=== PATIENT | female | born 1950 | race Caucasian/White ===

== ENCOUNTER → 2016-05-13 | Outpatient (CLI) | payer MEDICARE, OTHER ==
[~2016-05-13] MED LIST: ASPI81TA85 PO; AZEL0.055; BISO10TA3 PO; CALC0.02 EX; DESO0.0557 EX; DRIS50002 PO; GLIM2TA PO; GLIM4TAB PO; IRBE150T12 PO; LEVO175T2 PO; MELO15TA4 PO; METF500T PO; OMEG100011 PO; RANI1TAB6 PO; SIMV10TA2 PO; TYLE500T78 PO; VITA100037 PO; ZIAC2.5T PO
--- NOTE | 2016-05-13 12:37 | REP ---
Chest two views HISTORY: Diabetes Comparison: 01/08/2016 The lungs are clear. The heart is normal in size. The pulmonary vasculature is normal in appearance. The bony structure is intact. IMPRESSION: No acute disease. Signed by Grey Langley MD 05/13/2016 12:28 P
[2016-05-13 12:47] LABS: ALBUMIN 3.5 GM/DL (3.2-5.2); ALBUMIN/GLOBULIN RATIO 0.81 (1.00-1.93); ALKALINE PHOSPHATASE 98 U/L (45-117); ALT/SGPT 38 U/L (12-78); ANION GAP 11 MEQ/L (8-16); AST/SGOT 22 U/L (15-37); BILIRUBIN,TOTAL 0.2 MG/DL (0.2-1.0); BLOOD UREA NITROGEN 20 MG/DL (7-18); CALCIUM LEVEL 9.5 MG/DL (8.8-10.2); CARBON DIOXIDE LEVEL 24 MEQ/L (21-32); CHLORIDE LEVEL 107 MEQ/L (98-107); CREATININE FOR GFR 0.77 MG/DL (0.55-1.02); GLOMERULAR FILTRATION RATE > 60.0 (>45); GLUCOSE, FASTING 180 MG/DL (80-110); POTASSIUM SERUM 4.8 MEQ/L (3.5-5.1); SODIUM LEVEL 142 MEQ/L (136-145); TOTAL PROTEIN 7.8 GM/DL (6.4-8.2)
[2016-05-13 12:55] LABS: INR 0.89
[2016-05-13 12:57] LABS: MEAN CORPUSCULAR HEMOGLOBIN 29.9 pg (27.0-33.0); MEAN CORPUSCULAR HGB CONC 32.6 g/dl (32.0-36.5); MEAN CORPUSCULAR VOLUME 91.7 fl (80.0-96.0); RED CELL DISTRIBUTION WIDTH 13.2 % (11.5-14.5); WHITE BLOOD COUNT 8.2 K/mm3 (4.0-10.0)
--- NOTE | 2016-05-13 22:34 | ECGEPIP ---
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
== END ==
LOC: M ADMPAT 10:35
PROVIDERS: ATTEND Orthopaedic Surgery
DX: Z01.818 Encounter for other preprocedural examination (principal); E11.9 Type 2 diabetes mellitus without complications; I10 Essential (primary) hypertension; E78.5 Hyperlipidemia, unspecified; E07.9 Disorder of thyroid, unspecified; Z79.899 Other long term (current) drug therapy

== ENCOUNTER 2016-05-27 07:30 | Inpatient (IN) | payer MEDICARE, OTHER ==
[2016-05-13 10:54] VITALS: BP 134/81
--- NOTE | 2016-05-22 13:23 | HPE ---
DATE OF ADMISSION: 05/27/2016 HISTORY OF PRESENT ILLNESS: This is a pleasant female with continuing symptomatic bilateral knee osteoarthritis. Dr. Nicole has diagnosed marked arthritis at both knees and the patient decided to consented for left total knee arthroplasty. The patient states she was given thee option to proceed with either knee arthroplasty, and that it would ultimately be decided upon the day of surgery. Today she is leaning towards having the right knee done. X-rays are consistent with bilateral knee degenerative joint disease (DJD). The patient was cleared by Dr. Jensen and actually had a recent history and physical completed by Brittny Shannon on 01/22/2016, but there was further workup necessary per anesthesia so her surgery was cancelled. Since that time, she was reoptimized by Dr. Jensen. I am still awaiting that documentation. ALLERGIES: - LEVAQUIN - SULFA DRUGS CURRENT MEDICATIONS: - Mobic 15 mg - irbesartan 150 mg - Vitamin D 1.25 mg - levothyroxine sodium 175 mcg - bisoprolol fumarate/hydrochlorothiazide 2.5/6.25 mg - metformin HCl 500 mg - Merced-3 1 mg - simvastatin 10 mg - Azelastine HCl nasal 0.1% - ibuprofen 600 mg - calcipotriene 0.005% - Zantac EFFERdose 25 mg - Tylenol Extra Strength 500 mg - glimepiride 4 mg - desonide 0.05% - aspirin 81 mg MEDICAL PROBLEM LIST: 1. Bilateral knee osteoarthritis. 2. Hypertension. 3. Diabetes mellitus. 4. Obesity. 5. Hypercholesteremia. 6. Thyroid disease. PAST SURGICAL HISTORY: 1. Partial hysterectomy. 2. Heel spur. FAMILY HISTORY: Positive for arthritis, hypertension, heart disease, diabetes and thyroid disease. SOCIAL HISTORY: She is a former smoker, quit in 2006. Denies ethanol intake or illicit drugs. REVIEW OF SYSTEMS: Denies chest pain, shortness of breath, dyspnea on exertion, fever, chills, malaise, upper respiratory or urinary tract symptoms. PHYSICAL EXAMINATION: Height 67 inches, weight 305, temperature 98.2, blood pressure (BP) 150/84, pulse 64, respirations 11. She is a pleasant, morbidly obese, white female in no acute distress, alert, and oriented times three. Mood and affect are appropriate. Bilateral lower extremities: Skin temperature, color, sensory and motor within normal limits. These are benign noninfectious looking limbs. Abdomen soft, nontender. Chest: Rises symmetrically. Lungs: Negative SOB. Neck: Supple. Negative jugular venous distention (JVD) or bruits. Normocephalic. LAB STUDIES: Were reviewed which showed high glucose fasting at 180. BUN 20. Albumin-globulin ratio 0.81. Leukocyte esterase urine auto trace. WBC urine auto 5, bacteria urine auto 1+. PTT 12.2. ESR 55. Nasal, sinus, and urine cultures showed no growth. EKG sinus rhythm with first-degree AV block with occasional ventricular premature complexes as read by Dr. Kinney. Chest x-ray showed no acute disease, date of service, 05/13/2016, read by Dr. Langley. IMPRESSION: 1. Bilateral symptomatic knee degenerative joint disease. 2. Patient currently consented for a left total knee arthroplasty, but states she will decide the day of surgery with Dr. Nicole and is leaning towards having the right done today. 3. Medical optimization per Dr. Jensen, which I am still awaiting documentation. 4. On-call to operating room (OR) 2 grams IV Kefzol in OR. 5. Sequential compression device (SCD) and thromboembolic deterrent stockings (TEDS) in OR. MTDD
[~2016-05-27] VITALS: Ht 170.2 cm; Wt 138.3 kg
[~2016-05-27 07:30] MED LIST changes: +BUPIVACAINE HCL 0.5% 10 ML VIAL As Ordered ONE; +EPINEPHrine INJ 1 MG/ML 1ML VIAL/AMP As Ordered ONE; +ROPIvacaine 0.5% 30 ML INJECTION (J2795) As Ordered ONE; +TRANEXAMIC ACID 100 MG/ML 10ML VIAL As Ordered ONE; +ceFAZolin 1GM INJ (J0690) As Ordered ONE
[2016-05-27] MEDS ORDERED: ACETAMINOPHEN 500 MG TAB PO ONE (08:15)
[2016-05-27] MEDS ORDERED: LR 1,000 ML IV SCH ×2 (08:15→13:45)
[2016-05-27] MEDS ORDERED: COUM1TAB17 PO (08:21)
[2016-05-27] MEDS ORDERED: MIDAZOLAM INJ 2 MG/2 ML VIAL (J2250) As Ordered ONE ×2 (08:24→09:51)
[2016-05-27] MEDS ORDERED: fentaNYL 100 MCG/2 ML INJECTION (J3010) As Ordered ONE ×3 (08:41→10:40)
[2016-05-27] MEDS ORDERED: PROPOFOL 200 MG/20 ML VIAL As Ordered ONE ×2 (08:47→11:53)
[2016-05-27] MEDS ORDERED: LIDOCAINE 2% INJ 100 MG/5 ML SDV (FOR ANES.) As Ordered ONE (08:47)
[2016-05-27] MEDS ORDERED: IRBESARTAN 150 MG TAB PO SCH (09:00)
[2016-05-27] MEDS ORDERED: fentaNYL 100 MCG/2 ML INJECTION (J3010) IV ONE (10:45)
[2016-05-27] MEDS ORDERED: MIDAZOLAM INJ 2 MG/2 ML VIAL (J2250) IV ONE (10:45)
[2016-05-27] MEDS ORDERED: ONDANSETRON 4MG/2ML VIAL (J2405) As Ordered ONE (12:28)
[2016-05-27] MEDS ORDERED: ROPIvacaine 0.5% 30 ML INJECTION (J2795) ONE (12:54)
[2016-05-27] MEDS ORDERED: dexameTHASONE 10 MG/1 ML VIAL PRES.FREE (J1100) ONE (12:54)
[2016-05-27] MEDS ORDERED: EPINEPHrine INJ 1 MG/ML 1ML VIAL/AMP ONE (12:54)
[2016-05-27] MEDS ORDERED: MORPHINE PCA 1MG/ML 100ML CADD As Ordered ONE (13:42)
[2016-05-27] MEDS ORDERED: HYDROmorphone HCL 1 MG/ML SYRINGE (J1170) IV PRN (13:45)
[2016-05-27] MEDS ORDERED: ONDANSETRON 4MG/2ML VIAL (J2405) IV PRN ×2 (13:45→14:15)
[2016-05-27] MEDS ORDERED: PERCOCET 5MG/325MG TAB PO PRN (13:45)
[2016-05-27] MEDS ORDERED: fentaNYL 100 MCG/2 ML INJECTION (J3010) IV PRN (13:45)
[2016-05-27] MEDS ORDERED: FLEET ENEMA PR PRN (14:00)
[2016-05-27] MEDS ORDERED: ACETAMINOPHEN TAB 650MG DOSE (2X325MG) PO PRN (14:00)
[2016-05-27] MEDS ORDERED: NALOXONE INJ 0.4 MG/1 ML VIAL (J2310) IV PRN (14:15)
[2016-05-27] MEDS ORDERED: EPIDURAL/PCA KEYS XX PRN (14:15)
[2016-05-27] MEDS ORDERED: MORPHINE PCA 1MG/ML 100ML CADD IV PRN (14:15)
[2016-05-27] MEDS ORDERED: diphenhydrAMINE INJ 50MG/ML VIAL (J1200) IV PRN (14:15)
[2016-05-27] MEDS ORDERED: NALBUPHINE HCL 10 MG/ML AMP (J2300) IV PRN (14:15)
[2016-05-27] MEDS ORDERED: PATIENT IS CURRENTLY ON AN ON-Q PAIN BUSTER PAIN RELIEF SYSTEM XX SCH (14:15)
[2016-05-27] MEDS ORDERED: PHENYLephrine HCL 500 MCG/5 ML (100MCG/ML) SYRINGE (J2370) As Ordered ONE (14:26)
[2016-05-27] MEDS ORDERED: ePHEDrine SULFATE 25 MG/5 ML(5MG/ML) SYRINGE As Ordered ONE (14:26)
[2016-05-27 15:03] VITALS: BP 136/60
[2016-05-27 15:30] VITALS: BP 120/59
[2016-05-27] MEDS: LR 1,000 ML IV SCH (16:29)
[2016-05-27 16:30] VITALS: BP 147/63
[2016-05-27] MEDS ORDERED: WARFARIN SOD 5 MG TAB PO ONE (17:00)
[2016-05-27 17:30] VITALS: BP 141/65
[2016-05-27] MEDS: IRBESARTAN 150 MG TAB PO SCH (17:40)
--- NOTE | 2016-05-27 17:40 | CR ---
DATE OF CONSULTATION: 05/27/2016 CONSULTATION REPORT FOR: Dr. Isidro Nicole. PRIMARY CARE PROVIDER: Dr. Martin REASON FOR CONSULTATION: Medical management. HISTORY OF THE PRESENT ILLNESS: This is a 66-year-old female patient with underlying medical history of morbid obesity, osteoarthritis bilateral knee, hypertension, type 2 diabetes, dyslipidemia, hypothyroidism, admitted under orthopedic service status post right total knee replacement surgery by Dr. Isidro Nicole. The patient had a stress test, which was negative, by patient's outpatient provider prior to the surgery. Status post surgery, the patient currently denies any chest pain, pressure, discomfort. Denies any shortness of breath. Denies a history of obstructive sleep apnea. The patient does not drink alcohol or use illicit drugs. She is not on oxygen at home. Reported pain was in tolerable limits. ALLERGIES: To ENVIRONMENTAL ALLERGENS, LEVAQUIN. PAST MEDICAL HISTORY: Bilateral knee osteoarthritis. Hypertension. Type 2 diabetes. Obesity. Dyslipidemia. Hypothyroidism. PAST SURGICAL HISTORY: Partial hysterectomy. Heel spur surgery. FAMILY HISTORY: coronary artery disease, diabetes and hypothyroidism. SOCIAL HISTORY: The patient is a former smoker, quit in 1976. Denies alcohol use or illicit drug use. REVIEW OF SYSTEMS: 11-point review of systems is negative, except for those mentioned in the history of the present illness. HOME MEDICATIONS: - acetaminophen 500 mg by mouth as needed - aspirin 81 mg by mouth daily - azelastine nasal 0.15% - desonide 0.05% cream as needed - glimepiride 4 mg by mouth daily and 2 mg by mouth nightly - irbesartan 150 mg by mouth daily - Synthroid 175 mcg by mouth daily - meloxicam 15 mg by mouth daily - metformin 500 mg by mouth twice a day - Collins 3 fatty acid one tablet by mouth daily - ranitidine one capsule by mouth twice a day - Zocor 10 mg by mouth daily - vitamin D 50,000 units by mouth once a week PHYSICAL EXAMINATION: VITAL SIGNS: Temperature 98, pulse 64, respirations 16, blood pressure 120/59, pulse oximetry 96% on 2 liters nasal cannula. GENERAL: Patient alert and oriented times three, in no acute distress, obese. HEENT: Normocephalic, atraumatic. PULMONARY: Bilaterally clear to auscultation. CARDIAC: Regular rate and rhythm. Normal S1, S2. ABDOMEN: Soft, nontender. EXTREMITIES: Able to move bilateral lower extremities. Dorsalis pedis (DP), posterior tibial (PT) pulses 2+. No edema bilateral lower extremities. ASSESSMENT AND PLAN: This is a 66-year-old female patient with underlying medical history of hypertension, morbid obesity, type 2 diabetes, dyslipidemia, hypotension, hypertension, osteoarthritis, admitted under orthopedic service, status post right total knee replacement surgery. Medicine consulted for medical management. Problems: 1. Osteoarthritis of bilateral knees. Status post right total knee replacement by Dr. Isidro Nicole. Pain regimen, perioperative management, physical therapy and deep vein thrombosis (DVT) prophylaxis as per orthopedics. Patient on Coumadin for deep vein thrombosis (DVT) prophylaxis. Bowel regimen has been added. 2. Seasonal allergies. Claritin has been started. Patient's home medication is not on formulary. 3. Type 2 diabetes. Insulin as per protocol. Holding oral medications. Follow fingersticks. 4. Hypertension. Continue home medication. 5. Dyslipidemia. Continue home medication. 6. Hypothyroidism. Continue levothyroxine. 7. Dyslipidemia. Continue statin. 8. Obesity, complicating care. 9. Deep vein thrombosis (DVT) prophylaxis. The patient is on Coumadin. DISPOSITION: As per primary team. MTDD
[2016-05-27] MEDS: HumuLIN R (REGULAR) INSULIN (NovoLIN R) **100U/ML** PER UNIT SC SCH ×2 (18:00→21:00)
[2016-05-27 18:30] VITALS: BP 116/55
[2016-05-27] MEDS: OMEGA-3 1050MG CAPSULE PO SCH (21:13)
[2016-05-27] MEDS: SENOKOT S TAB PO SCH (21:14)
[2016-05-27] MEDS: LORATADINE 10 MG TAB PO SCH (21:14)
[2016-05-27] MEDS: SIMVASTATIN 10 MG TAB PO SCH (21:14)
[2016-05-27 22:00] VITALS: BP 139/66
[2016-05-28 02:00] VITALS: BP 148/62
[2016-05-28] MEDS: LR 1,000 ML IV SCH (02:30)
--- NOTE | 2016-05-28 05:54 | RO ---
DATE OF PROCEDURE: 05/27/2016 PREOPERATIVE DIAGNOSIS: Right knee degenerative arthritis. POSTOPERATIVE DIAGNOSIS: Right knee degenerative arthritis. PROCEDURE: Right total knee arthroplasty using a size 4 narrow femoral component cruciate retaining with a size 3 tibial tray and a 10 mm rotating platform polyethylene insert with a 35 mm polyethylene button. All components were cemented. The prosthesis was made by [employer]. It was a PFC knee. SURGEON: Isidro Garcia MD ENVELOPE FOLDING MACHINE ADJUSTER: JOSE CRUZ Gaytan ANESTHESIA: Spinal with postoperative PainBuster catheter. COMPLICATIONS: None. ESTIMATED BLOOD LOSS: 20 mL. TOURNIQUET TIME: 70 minutes. DESCRIPTION OF PROCEDURE: Antibiotics were given intravenously preoperatively and a successful spinal anesthetic was induced. [place] catheter placed. Tourniquet placed right upper thigh and not inflated. Right lower extremity was prepped and draped in the usual sterile fashion and then the leg was elevated. Then, after appropriate time-out, the tourniquet was inflated and then we made an anterior incision for a medial parapatellar approach to the knee. Bovie cautery was used to coagulate crossing vessels. We then performed a medial patella arthrotomy. Subperiosteal dissection and medial release was performed around the posterior proximal medial portion of the tibia. Initially, we could not van the patella but we flexed the knee and translated the patella laterally. A drill was placed down the center of the femoral canal, followed by the intramedullary shashi with the distal femoral cutting jigs set at 5 degree valgus cut, a 10 mm resection level for a right knee. It was pinned into position. Distal femoral cut performed. AP sizing jig measured for a size 4, which was then positioned and then the 3 degree external rotation jig was applied and the pins applied, followed by the 4-in-1 block for a size 4. Then, we performed the anterior, posterior, chamfer cuts and then exposed the proximal tibia. At this point, we were able to van the patella by doing some minor superficial patella releases to allow the patella to van. The proximal tibia was then exposed and extramedullary alignment jig used to make sure we were parallel to the mechanical access and we referenced off the medial tibial condyle at 4 mm resection level. The proximal tibial osteotomy jig was then positioned and pinned into position after making sure it was appropriately aligned. Secondary check with the extramedullary shashi confirmed that we were parallel. Proximal tibial osteotomy was then performed. The lamina supervisor paint roller covers was then placed medially and we performed a completion lateral meniscectomy with debridement of the posterior lateral osteophytes. We then placed the lamina supervisor paint roller covers laterally and performed a completion medial meniscectomy and debridement of the posterior medial osteophytes. The AP sizing jig at 10 mm thickness fit beautifully in terms of its stability and range of motion in both flexion and in extension with good rectangular equal flexion and extension space. Thus, this was the appropriate size we felt. We then exposed the proximal tibia once again, sized for a #3 tibial tray, which was pinned into position, followed by the reamer and broach, then the trial polyethylene and then the trial femoral component. We brought the knee into the extension, everted the patella, performed the patellar osteotomy, sized for a 35 button. Lug holes were drilled. Patellofemoral tracking was anatomic. We drilled the lug holes for the femur, then removed all the trial components and we copiously pulsatile lavaged, irrigated out the joint and then prepared the bony surfaces for cementing as my podiatry assistant, JOSE CRUZ Gaytan, mixed the cement on the back table. He was also critical to the success of the procedure by helping to manipulate the knee, hold appropriate soft tissue retraction, helped to mix the cement, helped to close the wound, helped position the patient and performed many other tasks throughout the operation. Once all the bony surfaces were thoroughly dried, we cemented the tibial tray, removed excess cement, placed the polyethylene, then cemented the femoral component, removed excess cement, brought the knee into extension, everted the patella and cemented the patellar component, removed excess cement and held this position until the cement had hardened. We copiously pulsatile lavage, irrigated out the knee joint once again as the cement was hardening; and then we placed the tranexamic acid in the knee and then began closing the apex with the arthrotomy with two interrupted #1 PDS sutures. We then closed the medial parapatellar area with a single #1 PDS suture. We then used a running double armed Stratafix to close the capsule. The tourniquet was then released. We then irrigated again the superficial tissues, closed them with interrupted #2-0 PDS suture. The skin was closed with sammy, covered by Adaptic, dry sterile bulky dressing after we placed the PainBuster catheter, which was placed after the arthrotomy and had already been closed. The tourniquet was released after we closed the capsule. The patient was then transferred to the recovery room in stable condition. There were no intraoperative complications.
[2016-05-28 06:00] VITALS: BP 123/60
[2016-05-28] MEDS ORDERED: ONDANSETRON 4 MG TAB (S0181) PO PRN (06:30)
[2016-05-28] MEDS ORDERED: PERCOCET 5MG/325MG TAB PO ONE (06:30)
[2016-05-28 06:58] LABS: MEAN CORPUSCULAR HEMOGLOBIN 29.4 pg (27.0-33.0); MEAN CORPUSCULAR HGB CONC 31.7 g/dl (32.0-36.5); MEAN CORPUSCULAR VOLUME 92.6 fl (80.0-96.0); RED CELL DISTRIBUTION WIDTH 13.2 % (11.5-14.5); WHITE BLOOD COUNT 11.5 K/mm3 (4.0-10.0)
[2016-05-28] MEDS: LEVOTHYROXINE 0.075 MG TAB (75 MCG) PO SCH (07:01)
[2016-05-28] MEDS: LEVOTHYROXINE 0.1 MG TAB (100 MCG) PO SCH (07:01)
[2016-05-28 07:06] LABS: ANION GAP 9 MEQ/L (8-16); BLOOD UREA NITROGEN 12 MG/DL (7-18); CALCIUM LEVEL 8.6 MG/DL (8.8-10.2); CARBON DIOXIDE LEVEL 29 MEQ/L (21-32); CHLORIDE LEVEL 101 MEQ/L (98-107); GLOMERULAR FILTRATION RATE > 60.0 (>45); GLUCOSE, FASTING 239 MG/DL (80-110); MAGNESIUM LEVEL 1.8 MG/DL (1.8-2.4); POTASSIUM SERUM 4.1 MEQ/L (3.5-5.1); SODIUM LEVEL 139 MEQ/L (136-145)
[2016-05-28 07:08] LABS: INR 1.11
[2016-05-28] MEDS: HumuLIN R (REGULAR) INSULIN (NovoLIN R) **100U/ML** PER UNIT SC SCH ×4 (09:14→20:36)
[2016-05-28] MEDS: HYDROCHLOROthiazide 6.25MG PER 1/4TAB PO SCH (09:14)
[2016-05-28] MEDS: MOM 30ML SUSPENSION UDC PO SCH (09:14)
[2016-05-28] MEDS: MIRALAX *UNIT DOSE* 17GM PACKET PO SCH (09:14)
[2016-05-28] MEDS: IRBESARTAN 150 MG TAB PO SCH (09:15)
[2016-05-28] MEDS: OMEGA-3 1050MG CAPSULE PO SCH ×2 (09:15→20:27)
[2016-05-28] MEDS: BISOPROLOL FUMARATE 10 MG TAB PO SCH (09:15)
[2016-05-28] MEDS: SENOKOT S TAB PO SCH ×2 (09:16→20:27)
[2016-05-28] MEDS: PERCOCET 5MG/325MG TAB PO PRN ×4 (09:16→21:57)
--- NOTE | 2016-05-28 09:47 | REP ---
REASON: Postop. COMPARISON: 12/06/2014, a preoperative exam. AP and lateral views were obtained. There has been a total knee prosthetic device placed, the femoral and tibial components of which are well seated and well approximated. There is expected postoperative soft tissue swelling. There is an anterior skin staple line in place. There is no evidence of an acute fracture or dislocation. IMPRESSION: Expected Postop changes as described above. Signed by Gerald Hawkins DO 05/28/2016 02:39 P
[2016-05-28 14:00] VITALS: BP 133/61
[2016-05-28] MEDS ORDERED: WARFARIN SOD 5 MG TAB PO ONE (17:00)
[2016-05-28 18:00] VITALS: BP 118/54
--- NOTE | 2016-05-28 19:23 | IPN ---
DATE: 05/28/2016 The patient seen and examined. No acute events overnight. Denies any fevers, chills, chest pain, pressure or discomfort, shortness of breath. Reported 4 out of 10 pain from the surgery to be relatively well controlled. VITAL SIGNS: Temperature 98.3, pulse 64, respirations 16, blood pressure 133/61, pulse oximetry 97% on 2 liters nasal cannula. LABORATORY: WBC 11.5, hemoglobin and hematocrit 12.2/38.6, platelets 228. Chemistry: Sodium 139, potassium 42.1. Chloride 101, bicarbonate 29, BUN 12, creatinine 0.9. PHYSICAL EXAMINATION: GENERAL: The patient obese, comfortable, alert and oriented times three. No acute distress. HEENT: Normocephalic, atraumatic. PULMONARY: Bilateral clear to auscultation. CARDIAC: Regular rate and rhythm. Normal S1, S2. ABDOMEN: Soft and nontender. Nondistended. EXTREMITIES: Dorsalis pedis/posterior tibial (DP/PT) pulses 2+. Dressing clean, dry and intact. ASSESSMENT AND PLAN: This is a 66-year-old female patient with underlying medical history of hypertension, morbid obesity, type 2 diabetes, dyslipidemia, hypertension, osteoarthritis admitted under orthopedic service, status post right total knee replacement surgery. Medicine was consulted for medical management. 1. Osteoarthritis of bilateral knees. Status post right total knee replacement surgery by Dr. Eugenio Nicole. Pain management. Perioperative management, physical therapy. Deep venous thrombosis (DVT) prophylaxis as per orthopedics. Bowel regimen is ordered. The patient on Coumadin for DVT prophylaxis. 2. Seasonal allergies. Continue Claritin. 3. Type 2 diabetes. Insulin as per protocol. Holding oral medicines. Follow fingersticks. 4. Hypertension. Continue home medicines. 5. Dyslipidemia. Continue home medicines. 6. Hypothyroidism. Continue levothyroxine. 7. Dyslipidemia. Continue statin. 8. Obesity complicating care. 9. Deep venous thrombosis prophylaxis, patient on Coumadin as per primary team. DISPOSITION: As per primary team.
[2016-05-28] MEDS: SIMVASTATIN 10 MG TAB PO SCH (20:27)
[2016-05-28] MEDS: LORATADINE 10 MG TAB PO SCH (20:36)
[2016-05-28 22:00] VITALS: BP 119/61
[2016-05-29] MEDS: PERCOCET 5MG/325MG TAB PO PRN ×4 (02:00→18:17)
[2016-05-29 06:00] VITALS: BP 154/73
[2016-05-29] MEDS: LEVOTHYROXINE 0.1 MG TAB (100 MCG) PO SCH (06:09)
[2016-05-29] MEDS: LEVOTHYROXINE 0.075 MG TAB (75 MCG) PO SCH (06:09)
[2016-05-29 07:38] LABS: MEAN CORPUSCULAR HGB CONC 32.7 g/dl (32.0-36.5); MEAN CORPUSCULAR VOLUME 91.8 fl (80.0-96.0); RED CELL DISTRIBUTION WIDTH 13.4 % (11.5-14.5); WHITE BLOOD COUNT 10.8 K/mm3 (4.0-10.0)
[2016-05-29 07:48] LABS: ANION GAP 8 MEQ/L (8-16); BLOOD UREA NITROGEN 13 MG/DL (7-18); CARBON DIOXIDE LEVEL 29 MEQ/L (21-32); CHLORIDE LEVEL 100 MEQ/L (98-107); CREATININE FOR GFR 0.77 MG/DL (0.55-1.02); GLOMERULAR FILTRATION RATE > 60.0 (>45); GLUCOSE, FASTING 225 MG/DL (80-110); MAGNESIUM LEVEL 2.1 MG/DL (1.8-2.4); POTASSIUM SERUM 4.5 MEQ/L (3.5-5.1); SODIUM LEVEL 137 MEQ/L (136-145)
[2016-05-29 07:49] LABS: INR 1.12
[2016-05-29] MEDS: MIRALAX *UNIT DOSE* 17GM PACKET PO SCH (08:26)
[2016-05-29] MEDS: MOM 30ML SUSPENSION UDC PO SCH (08:26)
[2016-05-29] MEDS: HumuLIN R (REGULAR) INSULIN (NovoLIN R) **100U/ML** PER UNIT SC SCH ×4 (08:26→20:27)
[2016-05-29] MEDS: BISOPROLOL FUMARATE 10 MG TAB PO SCH (08:27)
[2016-05-29] MEDS: IRBESARTAN 150 MG TAB PO SCH (08:27)
[2016-05-29] MEDS: HYDROCHLOROthiazide 6.25MG PER 1/4TAB PO SCH (08:27)
[2016-05-29] MEDS: SENOKOT S TAB PO SCH ×2 (08:27→20:28)
[2016-05-29] MEDS: OMEGA-3 1050MG CAPSULE PO SCH ×2 (08:27→20:28)
[2016-05-29 14:00] VITALS: BP 140/63
[2016-05-29] MEDS ORDERED: WARFARIN SOD 7.5 MG TAB PO ONE (17:00)
--- NOTE | 2016-05-29 18:38 | IPN ---
DATE: 05/29/2016 The patient was seen and examined. No acute events overnight. Reported pain at a tolerable level. The patient got up yesterday and is able to ambulate. Denies any fevers, chills, chest pain, pressure or discomfort. VITAL SIGNS: Temperature 96, pulse 71, respirations 19, blood pressure 154/73, pulse oximetry 96% on 2 liters cannula. LABORATORY DATA: WBC 10.8, hemoglobin and hematocrit 11.4/34.8, platelets 199. Chemistry; Sodium 137, potassium 4.5, chloride 100, bicarbonate 29, BUN 13, creatinine 0.77. PHYSICAL EXAMINATION: GENERAL: The patient is obese, comfortable, alert and oriented times three. In no acute distress. HEENT: Normocephalic, atraumatic. PULMONARY: Bilaterally clear to auscultation. CARDIAC: Regular rate and rhythm. Normal S1, S2. ABDOMEN: Soft, nontender, nondistended. EXTREMITIES: Dorsalis pedis and posterior tibialis pulses 2+. Dressing is clean, dry and intact. ASSESSMENT AND PLAN: This is a 66-year-old female patient with underlying medical history of hypertension, morbid obesity, type 2 diabetes, dyslipidemia, hypothyroidism, osteoarthritis, admitted under orthopedic service, status post right total knee replacement. Medicine consulted for medical management. 1. Osteoarthritis of bilateral knees, status post right total knee replacement. Surgery by Dr. Eugenio Nicole. Pain management, perioperative management, physical therapy (PT) , deep vein thrombosis (DVT) prophylaxis as per orthopedics. Bowel regimen prescribed. The patient has not had a bowel movement yet. Coumadin for deep vein thrombosis (DVT) prophylaxis. 2. Seasonal allergies. Claritin. 3. Type 2 diabetes. Insulin as per protocol. Withholding oral medications. We will resume oral hypoglycemic agents on discharge. Followup fingersticks. 4. Hypertension. Continue home medications. 5. Dyslipidemia. Continue home medications. 6. Hypothyroidism. Continue levothyroxine. 7. Dyslipidemia. Continue statin. 8. Obesity, complicating care. 9. Deep vein thrombosis (DVT) prophylaxis. The patient is on Coumadin. Followup INR. DISPOSITION: Pending physical therapy (PT), as per primary team.
[2016-05-29] MEDS: AZELASTINE 137MCG NASAL SPY 30 ML (ASTELIN) SCH (20:28)
[2016-05-29] MEDS: SIMVASTATIN 10 MG TAB PO SCH (20:28)
[2016-05-29] MEDS: LORATADINE 10 MG TAB PO SCH (20:28)
[2016-05-29 22:00] VITALS: BP 163/74
[2016-05-30 06:00] VITALS: BP 147/69
[2016-05-30] MEDS: LEVOTHYROXINE 0.075 MG TAB (75 MCG) PO SCH (06:31)
[2016-05-30] MEDS: LEVOTHYROXINE 0.1 MG TAB (100 MCG) PO SCH (06:31)
[2016-05-30] MEDS: PERCOCET 5MG/325MG TAB PO PRN ×2 (06:32)
[2016-05-30 07:15] LABS: MEAN CORPUSCULAR HEMOGLOBIN 30.2 pg (27.0-33.0); MEAN CORPUSCULAR HGB CONC 32.6 g/dl (32.0-36.5); MEAN CORPUSCULAR VOLUME 92.7 fl (80.0-96.0); RED CELL DISTRIBUTION WIDTH 13.3 % (11.5-14.5); WHITE BLOOD COUNT 10.1 K/mm3 (4.0-10.0)
[2016-05-30 07:20] LABS: INR 1.21
[2016-05-30 07:31] LABS: ANION GAP 8 MEQ/L (8-16); BLOOD UREA NITROGEN 10 MG/DL (7-18); CALCIUM LEVEL 9.1 MG/DL (8.8-10.2); CARBON DIOXIDE LEVEL 31 MEQ/L (21-32); CHLORIDE LEVEL 101 MEQ/L (98-107); CREATININE FOR GFR 0.67 MG/DL (0.55-1.02); GLOMERULAR FILTRATION RATE > 60.0 (>45); GLUCOSE, FASTING 219 MG/DL (80-110); MAGNESIUM LEVEL 2.2 MG/DL (1.8-2.4); POTASSIUM SERUM 4.2 MEQ/L (3.5-5.1); SODIUM LEVEL 140 MEQ/L (136-145)
[2016-05-30] MEDS: HumuLIN R (REGULAR) INSULIN (NovoLIN R) **100U/ML** PER UNIT SC SCH ×2 (07:56→12:06)
[2016-05-30] MEDS: MIRALAX *UNIT DOSE* 17GM PACKET PO SCH (07:56)
[2016-05-30] MEDS: BISOPROLOL FUMARATE 10 MG TAB PO SCH (07:56)
[2016-05-30] MEDS: MOM 30ML SUSPENSION UDC PO SCH (07:56)
[2016-05-30] MEDS: AZELASTINE 137MCG NASAL SPY 30 ML (ASTELIN) SCH (07:56)
[2016-05-30 07:57] VITALS: BP 147/69
[2016-05-30] MEDS: IRBESARTAN 150 MG TAB PO SCH (07:57)
[2016-05-30] MEDS: HYDROCHLOROthiazide 6.25MG PER 1/4TAB PO SCH (07:57)
[2016-05-30] MEDS: SENOKOT S TAB PO SCH (07:57)
[2016-05-30] MEDS: OMEGA-3 1050MG CAPSULE PO SCH (07:57)
[2016-05-30] MEDS ORDERED: MAGNESIUM CITRATE 300 ML BTL PO ONE (08:15)
[2016-05-30] MEDS ORDERED: PERC5TAB6 PO (08:27)
[2016-05-30] MEDS ORDERED: COUM2.5T11 PO (08:27)
--- NOTE | 2016-05-30 15:27 | IPN ---
DATE: 05/30/2016 SUBJECTIVE: Patient is seen and examined. No acute events overnight. Denies any fevers, chills, chest pain, pressure or discomfort. Comfortable. Able to ambulate. VITAL SIGNS: Temperature 98.6, pulse 79, respirations 18, blood pressure 147/69, pulse oximetry 89% on room air. LABORATORY DATA: WBC 10.1, hemoglobin and hematocrit 11.7 over 35.9, platelets 205. Chemistry: Sodium 140, potassium 4.2, chloride 101, bicarbonate 31, BUN 10, creatinine 0.67. PHYSICAL EXAMINATION: GENERAL: Patient obese, alert and oriented times three in no acute distress. HEENT: Normocephalic, atraumatic. PULMONARY: Bilaterally clear to auscultation. CARDIAC: Regular rate and rhythm. Normal S1, S2. ABDOMEN: Soft, nontender, nondistended. Positive bowel sounds. EXTREMITIES: Dorsalis pedis (DP) and posterior tibial (PT) pulses 2+. Dressing clean, dry and intact. ASSESSMENT AND PLAN: This is a 66-year-old female patient with underlying medical history of hypertension, morbid obesity, type 2 diabetes, dyslipidemia, hypothyroidism, osteoarthritis, admitted under orthopedic service, status post right total knee replacement. Medicine consulted for medication management. 1. Osteoarthritis of bilateral knees, status post right total knee replacement surgery by Dr. Eugenio Nicole. Pain management per operative management. Physical therapy (PT) as per orthopedics. Deep venous thrombosis (DVT) prophylaxis: Patient on Coumadin as per orthopedics. Bowel regimen as prescribed. Disposition as per orthopedics. Likely discharge today. 2. Seasonal allergies on Claritin. 3. Type 2 diabetes, insulin as per protocol. Will resume oral hypoglycemic agent upon discharge. Followup fingersticks. 4. Hypertension. Continue home medications. 5. Dyslipidemia. Continue statin. 6. Hypothyroidism. Continue levothyroxine. 7. Obesity complicating care. 8. Deep venous thrombosis (DVT) prophylaxis. Patient on Coumadin as per primary team. DISPOSITION: Likely discharge as per orthopedic team.
--- NOTE | 2016-06-02 15:12 | DSES ---
DATE OF ADMISSION: 05/27/2016 DATE OF DISCHARGE: 05/30/2016 ADMISSION DIAGNOSIS: Osteoarthritis right knee. OTHER DIAGNOSES: Hypertension, type 2 diabetes, elevated cholesterol, hypothyroidism, obesity. DISCHARGE DIAGNOSIS: Osteoarthritis of the right knee status post right total knee arthroplasty. HISTORY: This is a pleasant 66-year-old female with progressively worsening right knee pain and stiffness. She failed to improve with conservative management. She was admitted for elective knee replacement on the right side. OPERATION PERFORMED: Right total knee arthroplasty. HOSPITAL COURSE: The patient was admitted on day of surgery and underwent a right total knee arthroplasty, which was uneventful. She did well in the postoperative period, and her hospital course was without complications. She was up with physical therapy per their protocol and her pain was controlled. On day of discharge, she was doing well, weightbearing as tolerated on the right lower extremity. She will move her right knee to prevent stiffness. She will use adjusted dose Coumadin and JEFF stockings for 30 days postoperative for deep vein thrombosis (DVT) prophylaxis. She will resume her preoperative medications and diet. She was given instructions to include but not limited to wound monitoring, activity limitations. She will use oral pain medications for pain control. She will follow up in our office in 10-14 days for surgical followup. Please refer the medical record for further details.
== END 2016-05-30 12:28 | disposition home health service (06) | DRG 470 ==
LOC: M OR 07:53 → M MS5PR 14:45
PROVIDERS: ADMIT Orthopaedic Surgery; ATTEND Orthopaedic Surgery
PROC: 0SRC0J9 Replacement of Right Knee Joint with Synthetic Substitute, Cemented, Open Approach (ICD-10-PCS; principal; 2016-05-27 10:10)
DX: M17.0 Bilateral primary osteoarthritis of knee (principal); I10 Essential (primary) hypertension; E11.9 Type 2 diabetes mellitus without complications; E78.5 Hyperlipidemia, unspecified; E03.9 Hypothyroidism, unspecified; E66.9 Obesity, unspecified; Z79.899 Other long term (current) drug therapy; Z79.82 Long term (current) use of aspirin; Z91.040 Latex allergy status; Z88.8 Allergy status to other drugs, medicaments and biological substances; Z87.891 Personal history of nicotine dependence

== ENCOUNTER → 2016-06-05 | Outpatient (REF) | payer MEDICARE, OTHER ==
[~2016-06-05] MED LIST changes: -BUPIVACAINE HCL 0.5% 10 ML VIAL As Ordered ONE; +COUM1TAB17 PO; +COUM2.5T11 PO; -EPINEPHrine INJ 1 MG/ML 1ML VIAL/AMP As Ordered ONE; +PERC5TAB6 PO; -ROPIvacaine 0.5% 30 ML INJECTION (J2795) As Ordered ONE; -TRANEXAMIC ACID 100 MG/ML 10ML VIAL As Ordered ONE; -ceFAZolin 1GM INJ (J0690) As Ordered ONE
[2016-06-05 11:17] LABS: INR 1.53
== END ==
LOC: M SHH 10:43
PROVIDERS: ATTEND Nurse Practitioner Family
DX: Z79.01 Long term (current) use of anticoagulants (principal)

== ENCOUNTER → 2016-06-12 | Outpatient (REF) | payer MEDICARE, OTHER ==
[2016-06-12 14:18] LABS: INR 1.77
== END ==
LOC: M LAB REF 13:44
PROVIDERS: ATTEND Nurse Practitioner Family
DX: Z79.01 Long term (current) use of anticoagulants (principal)

== ENCOUNTER → 2016-06-16 | Outpatient (REF) | payer MEDICARE, OTHER ==
[2016-06-16 14:07] LABS: INR 2.1
== END ==
LOC: M SHH 13:38
PROVIDERS: ATTEND Nurse Practitioner Family
DX: Z51.81 Encounter for therapeutic drug level monitoring (principal); Z79.01 Long term (current) use of anticoagulants

== ENCOUNTER → 2016-06-19 | Outpatient (REF) | payer MEDICARE, OTHER ==
[2016-06-19 13:46] LABS: INR 2.23
== END ==
LOC: M SHH 13:01
PROVIDERS: ATTEND Nurse Practitioner Family
DX: Z51.81 Encounter for therapeutic drug level monitoring (principal); Z79.01 Long term (current) use of anticoagulants; Z47.89 Encounter for other orthopedic aftercare

== ENCOUNTER → 2016-06-23 | Outpatient (REF) | payer MEDICARE, OTHER ==
[2016-06-23 12:26] LABS: INR 1.55
== END ==
LOC: M SHH 11:53
PROVIDERS: ATTEND Nurse Practitioner Family
DX: Z51.81 Encounter for therapeutic drug level monitoring (principal); Z79.01 Long term (current) use of anticoagulants; Z47.89 Encounter for other orthopedic aftercare

== ENCOUNTER → 2016-12-15 | Outpatient (CLI) | payer MEDICARE, OTHER ==
[~2016-12-15] MED LIST changes: +CLAR10CA3 PO; -COUM2.5T11 PO; +COUM2.5T17 PO; -METF500T PO; +METF500T13 PO; +PERC5TAB12 PO; -PERC5TAB6 PO; +TRAM50TA2 PO; -VITA100037 PO; +VITA100067 PO
[2016-12-15 11:37] LABS: MEAN CORPUSCULAR HEMOGLOBIN 29.9 pg (27.0-33.0); MEAN CORPUSCULAR VOLUME 90.5 fl (80.0-96.0); RED CELL DISTRIBUTION WIDTH 13.7 % (11.5-14.5); WHITE BLOOD COUNT 9.1 10^3/uL (4.0-10.0)
[2016-12-15 11:59] LABS: INR 0.94
[2016-12-15 12:17] LABS: ALBUMIN 3.5 GM/DL (3.2-5.2); ALBUMIN/GLOBULIN RATIO 0.78 (1.00-1.93); ALKALINE PHOSPHATASE 99 U/L (45-117); ALT/SGPT 46 U/L (12-78); ANION GAP 9 MEQ/L (8-16); AST/SGOT 39 U/L (15-37); BILIRUBIN,TOTAL 0.5 MG/DL (0.2-1.0); BLOOD UREA NITROGEN 14 MG/DL (7-18); CALCIUM LEVEL 9.5 MG/DL (8.8-10.2); CARBON DIOXIDE LEVEL 27 MEQ/L (21-32); CHLORIDE LEVEL 104 MEQ/L (98-107); CREATININE FOR GFR 0.75 MG/DL (0.55-1.02); GLOMERULAR FILTRATION RATE > 60.0 (>45); GLUCOSE, FASTING 167 MG/DL (80-110); POTASSIUM SERUM 4.5 MEQ/L (3.5-5.1); SODIUM LEVEL 140 MEQ/L (136-145)
--- NOTE | 2016-12-15 13:00 | REP ---
Chest x-ray: Two views. History: Preop assessment. Anesthesia protocol . Comparison study: May 13, 2016 . Findings: The lungs are well inflated and free of infiltrate. The pleural angles are sharp. The heart size is normal. Pulmonary vasculature is not increased. No significant bony abnormality is seen. There are mild degenerative changes in the thoracic spine. Impression: Negative chest x-ray. Signed by Colt Lorenzana MD 12/15/2016 12:51 P
--- NOTE | 2016-12-16 20:09 | ECGEPIP ---
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
== END ==
LOC: M ADMPAT 09:29
PROVIDERS: ATTEND Orthopaedic Surgery
DX: Z01.818 Encounter for other preprocedural examination (principal); M17.12 Unilateral primary osteoarthritis, left knee; Z79.899 Other long term (current) drug therapy

== ENCOUNTER 2016-12-29 10:15 | Inpatient (IN) | payer MEDICARE, OTHER ==
--- NOTE | 2016-12-26 17:50 | HPE ---
DATE OF SCHEDULED ADMISSION: 12/29/2016 This is a pleasant 66-year-old female with continuing symptomatic left knee osteoarthritis. She has consented for a left total knee arthroplasty per Dr. Isidro Nicole. Medical optimization per Dr. Jensen. X-rays are consistent with advanced osteoarthritis. ALLERGIES: LEVAQUIN, SULFA DRUGS, SULFA ANTIBIOTICS. MEDICATION LIST: Includes - bisoprolol hydrochlorothiazide 10-6.25 mg one tablet by mouth every day - levothyroxine sodium 175 mcg, take one by mouth every day - irbesartan 150 mg tablet, one by mouth every day - Amaryl 2 mg oral tablet, one by mouth at bedtime - vitamin D 50,000 unit oral capsule, one weekly - Zantac 150 mg oral tablet, one by mouth twice a day - azelastine HCl 0.1% nasal solution, instill two puffs each nostril twice a day - meloxicam 15 mg, one tablet by mouth once a day - Glucophage XR 500 mg, one tablet extended release 24-hour, take two by mouth twice a day - simvastatin 10 mg, one oral tablet, one by mouth at bedtime - Lovaza 1 gram oral capsule, take two by mouth twice a day - Flonase Allergy Relief 50 mcg HCT nasal suspension, instill two puffs each nostril once a day MEDICAL PROBLEM LIST: Symptomatic left knee osteoarthritis. Hypercholesteremia. Hypertension. Diabetes mellitus. Seasonal allergies. Hypothyroidism. Some breathing difficulties who were noted in her history. PAST SURGICAL HISTORY: Positive for: Partial hysterectomy Heel spur. FAMILY HISTORY: Positive for hypertension, heart disease, arthritis, diabetes, thyroid disease. SOCIAL HISTORY: Former smoker, quit 2006. Denies ethanol intake or illicit drugs. REVIEW OF SYSTEMS: Denies chest pain, shortness of breath, dyspnea on exertion, fever, chills, malaise, upper respiratory or urinary tract symptoms. PHYSICAL EXAMINATION: Vital Signs: Blood pressure 140/82, pulse 72, temperature 97.3, height 66.75, weight 310, body mass index (BMI) 48.9, respirations 14. She is a pleasant, well-developed, well-nourished, obese female in no acute distress. Alert and oriented times three. Mood and affect are appropriate. She is ambulating with favoring of the right lower extremity, antalgia about the left. Left knee examined, not effused, ecchymotic or erythematous. Benign noninfectious looking, not hot to touch. She has positive palpable tenderness about the medial joint line with varus osteoarthritic alignment, crepitance through range of motion which is 0 past 90. Patellofemoral joint (PFJ) is congruent static and dynamic. She is stable about the collateral ligaments, patella and quad tendons without palpable defects. No popliteal fossa mass or pain. Left hip non-antalgic or limited through internal or external rotation. Bowel sounds times four, soft, nontender. Chest: Rises symmetrically. Lungs: Clear to auscultation. Chest: Regular rate and rhythm. Neck: Supple. Negative jugular venous distention (JVD) or bruits. Normocephalic. Medical optimization noted. Chest x-ray: Negative as read by Dr. Lorenzana on 12/15/2016. EKG read by Dr. Aguilar: Sinus rhythm, moderate intraventricular conduction delay. Labs from 12/15/2016 showed ESR 46, glucose fasting 167, AST/SGOT 39, albumin-globulin ratio 0.78. UA: Leukocyte esterase +1, WBC urine of 7, bacteria urine auto 1+. Nasal and sinus culture: No growth, normal donna present. IMPRESSION: 1. Symptomatic left knee osteoarthritis. 2. Patient consented for left total knee arthroplasty per Dr. Isidro Nicole. 3. Medical optimization per JOSE CRUZ Jensen. 4. On-call to operating room (OR) 2 grams IV Kefzol in operating room (OR). 5. Sequential compression device (SCD and thromboembolism deterrents (TEDs) in operating room. 6. Consent noted to be up to date. MTDD
[~2016-12-29] VITALS: Ht 170.2 cm; Wt 138.0 kg
[~2016-12-29 10:15] MED LIST changes: -TRAM50TA2 PO
[2016-12-29] MEDS ORDERED: ACETAMINOPHEN 500 MG TAB PO ONE (12:15)
[2016-12-29] MEDS ORDERED: LR 1,000 ML IV ONE (12:15)
[2016-12-29] MEDS ORDERED: fentaNYL 100 MCG/2 ML INJECTION (J3010) As Ordered ONE ×2 (13:00→13:18)
[2016-12-29] MEDS ORDERED: MIDAZOLAM INJ 2 MG/2 ML VIAL (J2250) As Ordered ONE ×2 (13:00→13:18)
[2016-12-29] MEDS ORDERED: LIDOCAINE 2% INJ 100 MG/5 ML SDV (FOR ANES.) As Ordered ONE (13:00)
[2016-12-29] MEDS ORDERED: PROPOFOL 200 MG/20 ML VIAL As Ordered ONE (13:00)
[2016-12-29] MEDS ORDERED: ceFAZolin 1GM INJ (J0690) As Ordered ONE (13:02)
[2016-12-29] MEDS ORDERED: EPINEPHrine INJ 1 MG/ML 1ML AMP As Ordered ONE (13:02)
[2016-12-29] MEDS ORDERED: TRANEXAMIC ACID 100 MG/ML 10ML VIAL As Ordered ONE (13:02)
[2016-12-29] MEDS ORDERED: BUPIVACAINE LIPOSOME/PF 1.3% 20 ML VIAL (13.3MG/ML)(EXPAREL) As Ordered ONE (13:02)
[2016-12-29] MEDS ORDERED: MIDAZOLAM INJ 2 MG/2 ML VIAL (J2250) IV ONE (14:15)
[2016-12-29] MEDS ORDERED: fentaNYL 100 MCG/2 ML INJECTION (J3010) IV ONE (14:15)
[2016-12-29] MEDS ORDERED: dexameTHASONE 10 MG/1 ML VIAL PRES.FREE (J1100) ONE (14:31)
[2016-12-29] MEDS ORDERED: ROPIvacaine 0.5% 30 ML INJECTION (J2795) ONE (14:31)
[2016-12-29] MEDS ORDERED: PHENYLephrine HCL 500 MCG/5 ML (100MCG/ML) SYRINGE (J2370) As Ordered ONE (15:12)
[2016-12-29] MEDS ORDERED: ePHEDrine SULFATE 25 MG/5 ML(5MG/ML) SYRINGE As Ordered ONE (15:12)
[2016-12-29] MEDS ORDERED: ONDANSETRON 4MG/2ML VIAL (J2405) As Ordered ONE (15:15)
[2016-12-29] MEDS ORDERED: fentaNYL 100 MCG/2 ML INJECTION (J3010) IV PRN (17:00)
[2016-12-29] MEDS ORDERED: ONDANSETRON 4MG/2ML VIAL (J2405) IV PRN ×2 (17:00→17:15)
[2016-12-29] MEDS ORDERED: METOCLOPRAMIDE INJ 10MG/2ML VIAL (J2765) IV PRN (17:00)
[2016-12-29] MEDS ORDERED: LR 1,000 ML IV SCH ×2 (17:00→18:00)
[2016-12-29] MEDS ORDERED: PERCOCET 5MG/325MG TAB PO PRN (17:00)
[2016-12-29] MEDS ORDERED: MORPHINE 2 MG/ML 1ML SYRINGE IV PRN (17:00)
[2016-12-29] MEDS ORDERED: MORPHINE 1MG/ML IN 0.9% NACL 100ML IV BAG As Ordered ONE (17:08)
[2016-12-29] MEDS ORDERED: NALBUPHINE HCL 10 MG/ML AMP (J2300) IV PRN (17:15)
[2016-12-29] MEDS ORDERED: diphenhydrAMINE INJ 50MG/ML VIAL (J1200) IV PRN (17:15)
[2016-12-29] MEDS ORDERED: NALOXONE INJ 0.4 MG/1 ML VIAL (J2310) IV PRN (17:15)
[2016-12-29] MEDS ORDERED: MORPHINE 1MG/ML IN 0.9% NACL 100ML IV BAG IV PRN (17:15)
[2016-12-29] MEDS ORDERED: EPIDURAL/PCA KEYS XX PRN (17:15)
--- NOTE | 2016-12-29 17:29 | RO ---
DATE OF PROCEDURE: 12/29/2016 PREPROCEDURE DIAGNOSIS: Left knee degenerative arthritis. POSTPROCEDURE DIAGNOSIS: Left knee degenerative arthritis. PROCEDURE: Left total knee arthroplasty using a size 4 cruciate-retaining femoral component, it was a 4 narrow, with a size 3 tibial tray and a 10 mm rotating platform polyethylene insert and a 35 mm polyethylene button. All components were cemented. Prosthesis was made by [employer]. It was a PFC knee. SURGEON: Dr. Isidro Nicole CABLE REELER: Mr. Vargas Israel ANESTHESIA: Spinal with left femoral nerve block. COMPLICATIONS: None. ESTIMATED BLOOD LOSS: Less than 20 mL. SPECIMENS: Joint surface. DESCRIPTION OF PROCEDURE: Antibiotics were given intravenously preoperatively. Then, a successful spinal and left femoral nerve block anesthetic was established. Tourniquet was placed on the left upper thigh and not inflated. Left lower extremity was prepped and draped in the usual sterile fashion. After the appropriate time out, the leg was elevated and the tourniquet was inflated. A longitudinal incision was made for a medial parapatellar approach to the knee. Bovie cautery was used to coagulate crossing vessels. The subperiosteal dissection around the proximal medial portion of the tibia and proximal lateral portion of the tibia was performed, and we had difficult everting the patella. We were able to van it, but it tended to flip back, so most of the case was done without the patella everted. We debrided the anterior cruciate ligament (ACL), then placed the drill down the center of the femoral canal. The distal femoral cutting jig was then applied and set at 5 degree valgus cut for a left knee at 10 mm resection level. Distal femoral cut was performed. The AP sizing jig measured for a size 4 and then the 3-degree rotation block was applied, followed by the 4-in-1 block. Anterior, posterior, chamfer cuts performed, taking great care to protect the surrounding soft tissues. We then exposed the proximal tibia, used the extramedullary jig to be sure we were parallel to the mechanical axis of the tibia and then we referenced off the medial tibial condyle at 4 mm resection level. Once the jig was pinned in position, the secondary check with the extramedullary shashi showed that we appeared to also continue to be parallel to the mechanical axis of the tibia. Proximal tibial osteotomy was then performed, and then we placed the lamina audit associate laterally and performed a completion medial meniscectomy and debridement of the posteromedial osteophytes. We then placed the lamina audit associate medially and performed a completion lateral meniscectomy and debridement of the posterolateral osteophytes. The spacer block fit nicely at 10 mm, both in flexion and extension with excellent stability to varus/valgus stress testing. We then exposed the proximal tibia, sized for a size #3 tray, which was pinned in position, followed by the reamer and broach, polyethylene applied, distal femur trial was placed, brought the knee into extension, everted the patella, performed a patellar osteotomy, sized for a 35 button. Lug holes were drilled. Patellofemoral trial was placed and patellofemoral tracking was anatomic. We then drilled the lug holes for the femur, removed all of the trial components, irrigated and placed the Exparel subperiosteally around the femur, as well as the tibia, as well as on the posterior capsule. Then, my assistant chief nursing officer, Mr. Vargas Israel, mixed the cement on the back table as I prepared the bony surfaces for cementing with a copious amount of pulsatile lavage irrigant solution. Once everything was thoroughly dried, I cemented the tibial tray, removed the excess cement, placed the polyethylene, then cemented the femoral component, removed the excess cement, brought the knee into extension and then cemented the patellar button, held it with a clamp after removing the excess cement and held that position until the cement hardened. As we were waiting, we copiously pulsatile lavage irrigated out the knee joint and then placed the tranexamic acid. We then began closing the arthrotomy apex with two #1 PDS sutures, then the medial parapatellar area was closed with a single #1 PDS suture and then we began closing the arthrotomy with a running double-armed #1 Stratafix and then let the tourniquet down, irrigated between layers, closed the deep subdermal tissues with interrupted PDS sutures, skin was closed with sammy, covered by Adaptic dry sterile bulky dressing. Mr. Vargas Israel was critical to the success of the operation by helping to close the wound, helping to manipulate the knee and apply the appropriate soft tissue retraction such that I could perform the operation smoothly and efficiently. BERNY
[2016-12-29 17:45] VITALS: BP 126/57
[2016-12-29] MEDS ORDERED: FLEET ENEMA PR PRN (18:00)
[2016-12-29] MEDS ORDERED: ACETAMINOPHEN TAB 650MG DOSE (2X325MG) PO PRN (18:00)
[2016-12-29] MEDS ORDERED: WARFARIN SOD 5 MG TAB PO ONE (18:00)
[2016-12-29 18:15] VITALS: BP 126/58
[2016-12-29 19:09] VITALS: BP 121/58
[2016-12-29] MEDS ORDERED: BISO10TA3 PO (19:41)
[2016-12-29] MEDS ORDERED: DEXTROSE 50% 50 ML SYRINGE IV PRN (19:45)
[2016-12-29] MEDS ORDERED: GLUCAGON FOR INJ 1 MG VIAL (J1610) SC PRN (19:45)
[2016-12-29] MEDS ORDERED: GLUCOSE 4 GM CHEW TABLET PO PRN (19:45)
[2016-12-29] MEDS ORDERED: LORATADINE 10 MG TAB PO PRN (20:00)
--- NOTE | 2016-12-29 20:02 | CR.PDOC ---
[facility] Consultation Consultation DATE OF CONSULTATION: 12/29/2016 PRIMARY CARE PHYSICIAN: Dr. Martin REASON FOR CONSULTATION/CHIEF COMPLAINT: Presented to [facility] for an elective total left knee arthroplasty. HISTORY OF PRESENT ILLNESS: Patient is a 58 year old female with a PMHx of HTN, DLP, NIDDM2, Hypothyroidism, Seasonal allergies and questionable obesity hypoventilation syndrome. She presented to [facility] for an elective total left knee arthroplasty. Patient was medically cleared by [employer]ERIAL HANDL[employer] LOADER of Dr. Martin. They received blood work, CXR and EKG and was cleared for the procedure. She noted that she has been on meloxicam for the pain and has not improved. She noted that she has even received injections with lubricant and failed to improve her pain. She is having difficulty with walking. She is currently post-surgery and she denies any chest pain, shortness of breath , cough, palpitations, nausea, vomiting, abdominal pain, constipation, diarrhea or dysuria. She denies any recent fever or chills. She does note a weight increase of 10 lbs over the summer. Her appetite remains unchanged. ALLERGIES: Please see below. HOME MEDICATIONS: Please see below. 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 ASSESSMENT/PLAN: Left knee pain - likely 2/2 osteoarthritis - s/p Total left knee arthroplasty ( POD#0) - Failed medical management and had difficulty with ADLs - Surgery to manage pain control and anticoagulation for DVT prophylaxis HTN - BP well controlled - c/w Bisoprolol - Hold Irbesartan and HCTZ (pending AM lab work) DLP - c/w [place] 3 fatty acids and Simvastatin NIDDM2 - c/w ISS Hypothyroidism - c/w Levothyroxine Seasonal allergies - c/w Antihistamine and Flonase Questionable obesity hypoventilation syndrome - currently on continuous pulse oximeter - has had sleep study in past and did not have CHERYL GERD - c/w Ranitidine DVT prophylaxis - Anticoagulation as per surgical team Vital Signs/I&O Vital Signs Date Time Temp Pulse Resp B/P (MAP) Pulse Ox O2 Delivery O2 Flow Rate FiO2 12/29/16 19:09 97.7 83 18 121/58 (79) 95 Nasal Cannula 12/29/16 17:55 2.0 I&O- Last 24 Hours up to 6 AM 12/30/16 05:59 Intake Total 1825 ml Output Total 380 ml Balance 1445 ml Laboratory Data Labs 24H Laboratory Tests 2 12/29/16 12:35: Bedside Glucose (Misc Panel) 197H Allergies Coded Allergies: Levofloxacin (Verified Allergy, Severe, swelling, 12/15/16) ENVIROMENTAL (Verified Allergy, Intermediate, congestion, sneezing, ) Sulfa Antibiotics (Verified Allergy, Intermediate, swelling, 12/15/16) Home Medications Scheduled (Bisoprolol Fumarate/[place] 10-6.25 mg) 1 Tab Tab, 1 TAB PO DAILY, (Reported) Glimepiride (Amaryl) 2 Mg Tab, 2 MG PO DAILY, (Reported) Irbesartan (Irbesartan) 150 Mg Tab, 150 MG PO DAILY, (Reported) Levothyroxine Sodium (Synthroid) 175 Mcg Tab, 175 MCG PO DAILY, (Reported) Meloxicam (Meloxicam) 15 Mg Tab, 15 MG PO DAILY, (Reported) Metformin Hydrochloride (Metformin HCl) 500 Mg Tab, 500 MG PO BID, (Reported) [place] 3 Polyunsat Fatty Acids ([place] 3 1000 mg) 1 Cap Cap, 2 CAP PO BID, ( Reported) Ranitidine HCl (Ranitidine [address]) 150 Mg Tab, 1 TAB PO BID, (Reported) Simvastatin (Simvastatin) 10 Mg Tab, 10 MG PO QHS, (Reported) Vitamin D (Drisdol) 50,000 Unit Cap, 50,000 UNIT PO 1XWK, (Reported) Scheduled PRN (Azelastine HCl) 0.15 % Spr, 0.15 % NA BIDP PRN for NASAL CONGESTION, (Reported ) (Calcipotriene/Betamethaso 0.005-0.064 %) 1 Oin Oin, 1 OIN EX PRN PRN for SEE LABEL COMMENTS, (Reported) Acetaminophen (Tylenol Extra Strength) 500 Mg Tab, 500 MG PO PRN PRN for PAIN OR FEVER, (Reported) Desonide (Desonide) 0.05 % Cre, 0.05 % EX DAILYPRN PRN for SEE LABEL COMMENTS, ( Reported) Loratadine (Claritin) 10 Mg Cap, 10 MG PO DAILYPRN PRN for NASAL CONGESTION, ( Reported) ZAHRA SUAREZ MD Dec 29, 2016 20:02
[2016-12-29 20:15] VITALS: BP 141/71
[2016-12-29] MEDS: HumaLOG INSULIN (NovoLOG) PER UNIT SC SCH (20:41)
[2016-12-29] MEDS: OMEGA-3 1050MG CAPSULE PO SCH (20:41)
[2016-12-29] MEDS: FAMOTIDINE 20 MG TAB PO SCH (20:42)
[2016-12-29] MEDS: SIMVASTATIN 10 MG TAB PO SCH (20:42)
[2016-12-29 21:15] VITALS: BP 131/62
[2016-12-30 02:00] VITALS: BP 141/62
[2016-12-30] MEDS: LEVOTHYROXINE 150MCG TABLET (0.15MG) PO SCH (05:32)
[2016-12-30] MEDS: LEVOTHYROXINE 25MCG TABLET (0.025MG) PO SCH (05:32)
[2016-12-30 06:00] VITALS: BP 128/62
[2016-12-30] MEDS ORDERED: ONDANSETRON 4 MG TAB (S0181) PO PRN (06:45)
[2016-12-30 07:16] LABS: BASO % 0.1 % (0.0-1.0); EOS % 0.1 % (0.0-3.0); IMMATURE GRANULOCYTE % 0.6 % (0-0); LYMPH # 1.6 10^3/uL (1.5-4.5); LYMPH % 14.3 % (24.0-44.0); MEAN CORPUSCULAR HGB CONC 31.8 g/dl (32.0-36.5); MEAN CORPUSCULAR VOLUME 91.3 fl (80.0-96.0); MONO # 0.9 10^3/uL (0.0-0.8); MONO % 7.7 % (0.0-5.0); NEUTROPHILS # 8.7 10^3/uL (1.8-7.7); NEUTROPHILS % 77.2 % (36.0-66.0); PLATELET COUNT, AUTOMATED 211 10^3/uL (150-450); RED CELL DISTRIBUTION WIDTH 13.5 % (11.5-14.5); WHITE BLOOD COUNT 11.3 10^3/uL (4.0-10.0)
[2016-12-30 07:29] LABS: INR 1.05
[2016-12-30 07:50] LABS: ALBUMIN/GLOBULIN RATIO 0.68 (1.00-1.93); ALKALINE PHOSPHATASE 82 U/L (45-117); ALT/SGPT 37 U/L (12-78); ANION GAP 8 MEQ/L (8-16); AST/SGOT 24 U/L (15-37); BILIRUBIN,TOTAL 0.4 MG/DL (0.2-1.0); BLOOD UREA NITROGEN 13 MG/DL (7-18); CALCIUM LEVEL 9.2 MG/DL (8.8-10.2); CARBON DIOXIDE LEVEL 27 MEQ/L (21-32); CHLORIDE LEVEL 101 MEQ/L (98-107); CREATININE FOR GFR 0.78 MG/DL (0.55-1.02); GLOMERULAR FILTRATION RATE > 60.0 (>45); GLUCOSE, FASTING 256 MG/DL (80-110); MAGNESIUM LEVEL 1.7 MG/DL (1.8-2.4); POTASSIUM SERUM 4.4 MEQ/L (3.5-5.1); SODIUM LEVEL 136 MEQ/L (136-145); TOTAL PROTEIN 7.4 GM/DL (6.4-8.2)
[2016-12-30] MEDS: HumaLOG INSULIN (NovoLOG) PER UNIT SC SCH ×4 (08:11→21:04)
[2016-12-30] MEDS: SENOKOT S TAB PO SCH ×2 (08:12→21:05)
[2016-12-30] MEDS: MOM 30ML SUSPENSION UDC PO SCH (08:12)
[2016-12-30] MEDS: FAMOTIDINE 20 MG TAB PO SCH ×2 (08:12→21:06)
[2016-12-30] MEDS: OMEGA-3 1050MG CAPSULE PO SCH ×2 (08:12→21:04)
[2016-12-30] MEDS: BISOPROLOL FUMARATE 10 MG TAB PO SCH (08:13)
[2016-12-30] MEDS: MIRALAX *UNIT DOSE* 17GM PACKET PO SCH (08:13)
[2016-12-30] MEDS: PERCOCET 5MG/325MG TAB PO PRN ×4 (08:13→21:35)
--- NOTE | 2016-12-30 08:32 | IPN ---
DATE: 12/30/2016 Seble is being rounded on for the hospitalist group, medical consultation. Patient is status post left total knee. She has history of hypertension, hyperlipidemia, type 2 diabetes, hypothyroidism, obesity, hypoventilation syndrome. Current oxygen saturations have dropped to 90% overnight, so she is on supplemental oxygen this morning. Home medications are: - glimepiride 2 mg daily - irbesartan 150 mg daily - levothyroxine 175 mcg daily - Mobic 15 mg daily - metformin 500 mg twice a day - ranitidine 150 mg twice a day - simvastatin 10 mg nightly - vitamin D 50,000 units weekly - and some [place]-3 fatty acids. She has no chest pain, shortness of breath, palpitations. Physical exam: 120/62, pulse 66, respiratory rate 15, 98% oxygen saturation on 2 liters. General appearance: Alert, conversant, no distress. HEENT: Unremarkable. Lungs: Clear. Heart: Without murmur. Abdomen: Soft, nontender. No masses. Labs: White count 11.3, hemoglobin 12.3, platelets 211. Electrolytes are pending this morning. Impression: 1. Hypertension. Well controlled on current regimen. She is on bisoprolol 10 mg daily for perioperative beta blockade. She takes irbesartan as an outpatient. 2. Hypothyroidism. Continue levothyroxine 175 mcg daily. 3. . Continue simvastatin 10 mg daily. 4. Hyperlipidemia. She is on sliding scale of insulin by fingerstick blood sugars. So far insulin requirements have been scant. Would advise restarting her metformin tomorrow. I would not restart her glimepiride until she is on her home diet. Dr. Goode will be rounding on the patient as the hospitalist tomorrow.
--- NOTE | 2016-12-30 09:25 | REP ---
AP LATERAL LEFT KNEE, TWO VIEWS: HISTORY: Knee replacement. The patient is status post left total knee replacement. There is no acute fracture or dislocation. A small amount of subcutaneous air and surgical sammy are present in the overlying soft tissue. IMPRESSION: The patient is status post left total knee replacement. There is anatomic alignment. Signed by Grey Langley MD 12/30/2016 09:34 A
[2016-12-30 10:00] VITALS: BP 130/68
[2016-12-30 14:00] VITALS: BP 141/73
[2016-12-30] MEDS ORDERED: WARFARIN SOD 5 MG TAB PO ONE (17:00)
[2016-12-30] MEDS ORDERED: AZELASTINE 137MCG NASAL SPY 30 ML (ASTELIN) SCH (21:00)
[2016-12-30] MEDS: SIMVASTATIN 10 MG TAB PO SCH (21:06)
[2016-12-30 22:00] VITALS: BP 110/60
[2016-12-31] MEDS: PERCOCET 5MG/325MG TAB PO PRN (02:41)
[2016-12-31 06:00] VITALS: BP 161/60
[2016-12-31] MEDS: LEVOTHYROXINE 150MCG TABLET (0.15MG) PO SCH (06:11)
[2016-12-31] MEDS: LEVOTHYROXINE 25MCG TABLET (0.025MG) PO SCH (06:11)
[2016-12-31 06:59] LABS: BASO % 0.3 % (0.0-1.0); EOS # 0.1 10^3/uL (0.0-0.50); IMMATURE GRANULOCYTE % 0.7 % (0-0); LYMPH # 3.4 10^3/uL (1.5-4.5); LYMPH % 28.5 % (24.0-44.0); MEAN CORPUSCULAR HEMOGLOBIN 29.4 pg (27.0-33.0); MEAN CORPUSCULAR HGB CONC 32.3 g/dl (32.0-36.5); MONO # 0.9 10^3/uL (0.0-0.8); MONO % 7.2 % (0.0-5.0); NEUTROPHILS # 7.4 10^3/uL (1.8-7.7); NEUTROPHILS % 62.3 % (36.0-66.0); PLATELET COUNT, AUTOMATED 213 10^3/uL (150-450); RED CELL DISTRIBUTION WIDTH 13.4 % (11.5-14.5); WHITE BLOOD COUNT 11.8 10^3/uL (4.0-10.0)
[2016-12-31 07:11] LABS: INR 1.26
[2016-12-31 07:20] LABS: ALBUMIN 2.9 GM/DL (3.2-5.2); ALBUMIN/GLOBULIN RATIO 0.63 (1.00-1.93); ALKALINE PHOSPHATASE 82 U/L (45-117); ALT/SGPT 29 U/L (12-78); ANION GAP 8 MEQ/L (8-16); AST/SGOT 16 U/L (15-37); BILIRUBIN,TOTAL 0.5 MG/DL (0.2-1.0); BLOOD UREA NITROGEN 13 MG/DL (7-18); CALCIUM LEVEL 8.7 MG/DL (8.8-10.2); CARBON DIOXIDE LEVEL 27 MEQ/L (21-32); CHLORIDE LEVEL 98 MEQ/L (98-107); CREATININE FOR GFR 0.83 MG/DL (0.55-1.02); GLOMERULAR FILTRATION RATE > 60.0 (>45); GLUCOSE, FASTING 239 MG/DL (80-110); SODIUM LEVEL 133 MEQ/L (136-145); TOTAL PROTEIN 7.5 GM/DL (6.4-8.2)
[2016-12-31] MEDS ORDERED: traMADol 50 MG TAB PO PRN ×2 (08:15)
[2016-12-31] MEDS ORDERED: TRAM50TA2 PO (08:34)
[2016-12-31] MEDS ORDERED: COUM2.5T17 PO (08:34)
[2016-12-31 08:57] VITALS: BP 161/60
[2016-12-31] MEDS: HumaLOG INSULIN (NovoLOG) PER UNIT SC SCH ×2 (08:57→12:10)
[2016-12-31] MEDS: BISOPROLOL FUMARATE 10 MG TAB PO SCH (08:57)
[2016-12-31] MEDS: OMEGA-3 1050MG CAPSULE PO SCH ×2 (08:57→09:00)
[2016-12-31] MEDS: SENOKOT S TAB PO SCH (08:58)
[2016-12-31] MEDS: FAMOTIDINE 20 MG TAB PO SCH (08:58)
[2016-12-31] MEDS: MIRALAX *UNIT DOSE* 17GM PACKET PO SCH (08:58)
[2016-12-31] MEDS: MOM 30ML SUSPENSION UDC PO SCH (08:58)
[2016-12-31] MEDS ORDERED: PREVNAR 13 VACCINE SYRINGE (CPT CODE:90670) IM ONE ×2 (13:00→15:00)
[2016-12-31] MEDS ORDERED: WARFARIN SOD 5 MG TAB PO ONE (17:00)
--- NOTE | 2016-12-31 20:16 | IPN ---
DATE: 12/31/2016 Patient seen and examined. No acute events overnight. Working well with physical therapy. Denies any fevers, chills, chest pain, pressure, discomfort, shortness of breath. VITAL SIGNS: Temperature 96.4, pulse 74, respirations 16, blood pressure 161/60, pulse oximetry 96% on room air. LABORATORY DATA: WBC 11.8, hemoglobin and hematocrit 12.4/38.4, platelets 213. Chemistry: Sodium 133, potassium 4, chloride 98, bicarbonate 27, BUN 13, creatinine 0.83. PHYSICAL EXAMINATION: GENERAL: Patient obese. Alert and oriented times three in no acute distress. HEENT: Normocephalic, atraumatic. PULMONARY: Bilaterally clear. CARDIAC: Regular rate and rhythm. Normal S1, S2. ABDOMEN: Soft and nontender. Positive bowel sounds. EXTREMITIES: Dressing clean, dry, and intact. ASSESSMENT AND PLAN: This is a 66-year-old female patient with underlying medical history of hypertension, dyslipidemia, type 2 diabetes, hypothyroidism, seasonal allergies, obesity with questionable obesity hypoventilation syndrome, admitted to orthopedic service with left knee replacement. Medicine consulted for medical management. 1. Left knee arthroplasty. Deep vein thrombosis (DVT) prophylaxis, pain regimen , and activity and PT status as per orthopedics. Likely discharge later today. 2. Hypertension. Continue home medication. 3. Hypothyroidism. Continue levothyroxine. 4. Dyslipidemia. Continue statin. 5. Diabetes. Insulin via protocol while here. Resume oral medication once home. 6. DVT prophylaxis. Patient on Coumadin as per orthopedics. DISPOSITION: As per primary team. [facility]OSPITALDavid
--- NOTE | 2017-01-02 17:06 | DSES ---
DATE OF ADMISSION: 12/29/2016 DATE OF DISCHARGE: 12/31/2016 DISCHARGE DIAGNOSIS: Left knee arthritis status post left total knee arthroplasty. HISTORY: This is a 66-year-old female with progressively worsening left knee pain and stiffness. She had failed to improve with conservative treatment. She elected for surgery for her continued symptoms. PROCEDURE PERFORMED: Left total knee arthroplasty. HOSPITAL COURSE: The patient was admitted on the day of surgery and underwent left total knee arthroplasty that was without complications. She was up with physical therapy per the protocol and her pain was controlled. She was weightbearing as tolerated. DISCHARGE INSTRUCTIONS: The patient will resume preoperative medications and diet. She will use oral medications for pain control. She will use thromboembolism deterrent (JEFF) stockings and Coumadin for 30 days postoperatively for deep venous thrombosis (DVT) prophylaxis and she will followup in the office in two weeks for staple removal and wound check.
== END 2016-12-31 16:35 | disposition home health service (06) | DRG 470 ==
LOC: M OR 12:01 → M MS5PR 17:30
PROVIDERS: ADMIT Orthopaedic Surgery; ATTEND Orthopaedic Surgery
PROC: 0SRD0J9 Replacement of Left Knee Joint with Synthetic Substitute, Cemented, Open Approach (ICD-10-PCS; principal; 2016-12-29 14:30)
DX: M17.12 Unilateral primary osteoarthritis, left knee (principal); E66.2 Morbid (severe) obesity with alveolar hypoventilation; Z68.42 Body mass index [BMI] 45.0-49.9, adult; Z88.2 Allergy status to sulfonamides; Z88.1 Allergy status to other antibiotic agents; Z88.8 Allergy status to other drugs, medicaments and biological substances; Z79.899 Other long term (current) drug therapy; E78.00 Pure hypercholesterolemia, unspecified; E11.9 Type 2 diabetes mellitus without complications; E03.9 Hypothyroidism, unspecified; K21.9 Gastro-esophageal reflux disease without esophagitis

== ENCOUNTER → 2017-01-01 | Outpatient (REF) | payer MEDICARE, OTHER ==
[~2017-01-01] MED LIST changes: +TRAM50TA2 PO
[2017-01-01 12:29] LABS: INR 1.18
== END ==
LOC: M SHH 11:59
PROVIDERS: ATTEND Nurse Practitioner Family
DX: Z79.01 Long term (current) use of anticoagulants (principal)

== ENCOUNTER → 2017-01-05 | Outpatient (REF) | payer MEDICARE, OTHER ==
[2017-01-05 15:05] LABS: INR 1.41
== END ==
LOC: M SHH 13:41
PROVIDERS: ATTEND Nurse Practitioner Family
DX: Z79.01 Long term (current) use of anticoagulants (principal)

== ENCOUNTER → 2017-01-22 | Outpatient (REF) | payer MEDICARE, OTHER ==
[2017-01-22 14:22] LABS: INR 1.81
== END ==
LOC: M SHH 14:01
PROVIDERS: ATTEND Nurse Practitioner Family
DX: Z51.81 Encounter for therapeutic drug level monitoring (principal); Z79.01 Long term (current) use of anticoagulants

== ENCOUNTER → 2020-08-10 | Outpatient (CLI) | payer MEDICARE, OTHER ==
[~2020-08-10] MED LIST changes: -ASPI81TA85 PO; +ASPI81TA86 PO; +AZEL1SPR3; -BISO10TA3 PO; +BISO10TA4 PO; -DRIS50002 PO; +DRIS50003 PO; +FAMO1TAB11; -GLIM2TA PO; +GLIM2TAB29 PO; -GLIM4TAB PO; +GLIM4TAB5 PO; -IRBE150T12 PO; +IRBE150T7 PO; +MELO15TA28 PO; -MELO15TA4 PO; +OMEG1CAP85; +RANI-397 PO; -RANI1TAB6 PO; -SIMV10TA2 PO; +SIMV10TA21 PO; +VITA50005
== END ==
LOC: M LABSMTC 10:26
PROVIDERS: ATTEND Anesthesiology
DX: Z01.812 Encounter for preprocedural laboratory examination (principal); Z20.822 Contact with and (suspected) exposure to COVID-19

== ENCOUNTER 2020-08-15 11:45 | Day surgery (SDC) | payer MEDICARE, OTHER ==
[~2020-08-15] VITALS: Ht 170.2 cm; Wt 132.9 kg
[~2020-08-15 11:45] MED LIST changes: +NS 1,000 ML IV ONE
[2020-08-15] MEDS ORDERED: propofoL 200 MG/20 ML VIAL As Ordered ONE (14:34)
[2020-08-15] MEDS ORDERED: LIDOCAINE 2% 100MG/5ML SDV (FOR ANES.) As Ordered ONE (14:34)
--- NOTE | 2020-08-15 14:38 | ROOR ---
Patient Name: Seble Soto Procedure Date: 08/15/2020 2:04 PM Date of : 1950 Age: 70 Room: [facility] Gender: Female Note Status: Finalized Procedure: Colonoscopy Indications: Screening for colorectal malignant neoplasm Providers: Jon Álvarez MD Referring MD: EDWAR CASIANO NP Requesting Provider: Medicines: Monitored Anesthesia Care Complications: No immediate complications. Procedure: Pre-Anesthesia Assessment: - Prior to the procedure, a History and Physical was performed, and patient medications and allergies were reviewed. The patient is competent. The risks and benefits of the procedure and the sedation options and risks were discussed with the patient. All questions were answered and informed consent was obtained. Patient identification and proposed procedure were verified by the physician and the kitman in the endoscopy suite. Mental Status Examination: alert and oriented. Airway Examination: normal oropharyngeal airway and neck mobility. Respiratory Examination: clear to auscultation. CV Examination: normal. Prophylactic Antibiotics: The patient does not require prophylactic antibiotics. Prior Anticoagulants: The patient has taken no previous anticoagulant or antiplatelet agents. ASA Grade Assessment: III - A patient with severe systemic disease. After reviewing the risks and benefits, the patient was deemed in satisfactory condition to undergo the procedure. The anesthesia plan was to use monitored anesthesia care (MAC). Immediately prior to administration of medications, the patient was re-assessed for adequacy to receive sedatives. The heart rate, respiratory rate, oxygen saturations, blood pressure, adequacy of pulmonary ventilation, and response to care were monitored throughout the procedure. The physical status of the patient was re-assessed after the procedure. The Colonoscope was introduced through the anus and advanced to the cecum, identified by appendiceal orifice and ileocecal valve. The colonoscopy was performed without difficulty. The patient tolerated the procedure well. The quality of the bowel preparation was excellent. Findings: The perianal and digital rectal examinations were normal. The colon (entire examined portion) appeared normal. Estimated blood loss: none. The retroflexed view of the distal rectum and anal verge was normal and showed no anal or rectal abnormalities. Impression: - The entire examined colon is normal. - The distal rectum and anal verge are normal on retroflexion view. - No specimens collected. Recommendation: - Discharge patient to home (ambulatory). - Repeat colonoscopy in 10 years for screening purposes. Procedure Code(s): --- Professional --- 63656, Colonoscopy, flexible; diagnostic, including collection of specimen(s) by brushing or washing, when performed (separate procedure) Diagnosis Code(s): --- Professional --- Z12.11, Encounter for screening for malignant neoplasm of colon CPT copyright 2019 [employer]. All rights reserved. The codes documented in this report are preliminary and upon motion picture critic review may be revised to meet current compliance requirements. Jon Álvarez MD Jon Álavrez MD 08/15/2020 2:38:12 PM Electronically signed by Jon Álvarez MD Number of Addenda: 0 Note Initiated On: 08/15/2020 2:04 PM Estimated Blood Loss: Estimated blood loss: none.
[2020-08-15 15:00] VITALS: BP 129/73
== END 2020-08-15 15:09 | disposition home or self-care (01) ==
LOC: M OPP 11:45
PROVIDERS: ATTEND Surgery
DX: Z12.11 Encounter for screening for malignant neoplasm of colon (principal); E11.9 Type 2 diabetes mellitus without complications; I10 Essential (primary) hypertension; Z79.84 Long term (current) use of oral hypoglycemic drugs; Z79.899 Other long term (current) drug therapy; Z88.2 Allergy status to sulfonamides; Z88.8 Allergy status to other drugs, medicaments and biological substances; Z87.891 Personal history of nicotine dependence

== ENCOUNTER 2020-08-16 15:18 | Emergency (ER) | payer MEDICARE, OTHER ==
[~2020-08-16] VITALS: Ht 170.2 cm; Wt 133.2 kg
[~2020-08-16 15:18] MED LIST changes: -NS 1,000 ML IV ONE
[2020-08-16 16:15] LABS: BASO % 0.5 % (0.0-1.0); EOS # 0.3 10^3/uL (0.0-0.5); EOS % 3.4 % (0.0-3.0); HEMATOCRIT 43.9 % (36.0-47.0); HEMOGLOBIN 13.9 g/dl (12.0-15.5); LYMPH # 2.1 10^3/uL (1.5-5.0); LYMPH % 25.4 % (24.0-44.0); MEAN CORPUSCULAR HEMOGLOBIN 30.1 pg (27.0-33.0); MEAN CORPUSCULAR HGB CONC 31.7 g/dl (32.0-36.5); MONO # 0.7 10^3/uL (0.0-0.8); MONO % 7.9 % (2.0-8.0); NEUTROPHILS # 5.1 10^3/uL (1.5-8.5); NEUTROPHILS % 62.1 % (36.0-66.0); PLATELET COUNT, AUTOMATED 202 10^3/uL (150-450); RED BLOOD COUNT 4.62 10^6/uL (4.00-5.40); WHITE BLOOD COUNT 8.2 10^3/uL (4.0-10.0)
--- NOTE | 2020-08-16 16:25 | REP ---
INDICATION: CHEST PAIN. COMPARISON: 12/15/2016 a two view exam TECHNIQUE: Portable FINDINGS: The technique utilized in obtaining the radiograph has magnified the cardiac silhouette and accentuated the interstitial markings. The superior mediastinal structures are midline. The cardiac silhouette is mildly enlarged but magnified by technique. The diaphragmatic surfaces of the lungs are regular, and the costophrenic angles are clear. The pulmonary boucher are clear. The imaged osseous structures are intact. IMPRESSION: There is evidence of mild cardiomegaly, however, there is no acute cardiopulmonary disease. <Electronically signed by Gerald Hawkins > 08/16/20 [id number]
[2020-08-16 16:49] LABS: ALBUMIN 3.2 GM/DL (3.2-5.2); ALT/SGPT 42 U/L (12-78); BILIRUBIN,DIRECT < 0.1 MG/DL (0.0-0.2); BILIRUBIN,TOTAL 0.3 MG/DL (0.2-1.0); BLOOD UREA NITROGEN 14 MG/DL (7-18); CALCIUM LEVEL 9.5 MG/DL (8.8-10.2); CARBON DIOXIDE LEVEL 28 MEQ/L (21-32); CHLORIDE LEVEL 107 MEQ/L (98-107); CREATININE FOR GFR 0.72 MG/DL (0.55-1.30); GLOMERULAR FILTRATION RATE > 60.0 (>39); GLUCOSE, FASTING 104 MG/DL (70-100); LIPASE 169 U/L (73-393); NT-PRO BNP 128 PG/ML (<125); POTASSIUM SERUM 4.9 MEQ/L (3.5-5.1); SODIUM LEVEL 140 MEQ/L (136-145); TOTAL PROTEIN 7.8 GM/DL (6.4-8.2)
[2020-08-16] MEDS ORDERED: ASPIRIN 81 MG CHEW TABLET PO ONE (17:10)
[2020-08-16 17:26] LABS: CK-MB VALUE MASS < 1.0 NG/ML (<3.6); CPK CREATINE PHOSPHOKINASE 136 U/L (26-192); MB/CK RELATIVE INDEX 0.74 (< OR =4); TROPONIN I < 0.02 NG/ML (< 0.10)
--- NOTE | 2020-08-16 20:06 | ECGEPIP ---
[facility] - ED Test Date: 2020-08-16 Pat Name: FATOU RENAE Department: Room: - Gender: Female Downstairs Maid: jeremias : 1950 Requested By: Vandana Loera Order Number: [id number] Reading MD: Nitesh Trujillo Measurements Intervals [place] Rate: 71 P: 52 [place]: 222 QRS: 51 QRSD: 92 T: 71 QT: 396 QTc: 430 Interpretive Statements Sinus rhythm with 1st degree AV block with premature atrial complexes SIMILAR TO 12/15/16 Electronically Signed on 08-16-2020 20:05:59 EDT by Nitesh Trujillo
[2020-08-16 20:45] VITALS: BP 146/67
[2020-08-16 21:41] LABS: CK-MB VALUE MASS < 1.0 NG/ML (<3.6); CPK CREATINE PHOSPHOKINASE 89 U/L (26-192); MB/CK RELATIVE INDEX 1.12 (< OR =4); TROPONIN I < 0.02 NG/ML (< 0.10)
--- NOTE | 2020-08-17 09:24 | ECGEPIP ---
[facility] - ED Test Date: 2020-08-16 Pat Name: FATOU RENAE Department: Room: - Gender: Female Chemical Weigher: cesario : 1950 Requested By: MARCO ANTONIO MORALES Order Number: [id number] Reading MD: Nitesh Trujillo Measurements Intervals [place] Rate: 62 P: 38 RI: 238 QRS: 59 QRSD: 90 T: 84 QT: 412 QTc: 418 Interpretive Statements Sinus rhythm with 1st degree AV block SIMILAR TO PRIOR ON SAME DATE Electronically Signed on 08-17-2020 9:24:24 EDT by Nitesh Trujillo
== END 2020-08-16 22:25 | disposition home or self-care (01) ==
LOC: M ED 15:18
DX: R07.89 Other chest pain (principal); R11.0 Nausea; E11.9 Type 2 diabetes mellitus without complications; I10 Essential (primary) hypertension; E78.5 Hyperlipidemia, unspecified; K21.9 Gastro-esophageal reflux disease without esophagitis; Z79.899 Other long term (current) drug therapy; Z79.890 Hormone replacement therapy; Z88.1 Allergy status to other antibiotic agents; Z88.2 Allergy status to sulfonamides; Z88.8 Allergy status to other drugs, medicaments and biological substances; J30.89 Other allergic rhinitis

== ENCOUNTER → 2022-04-18 | Outpatient (CLI) | payer MEDICARE, OTHER ==
[~2022-04-18] MED LIST changes: -BISO10TA4 PO; +BISO1TAB19 PO; +ERGO500029; -VITA50005
== END ==
LOC: M WHC 07:47
PROVIDERS: ATTEND Nurse Practitioner Family
DX: N20.0 Calculus of kidney (principal); R10.11 Right upper quadrant pain; R19.7 Diarrhea, unspecified

== ENCOUNTER → 2022-06-10 | Outpatient (REF) | payer MEDICARE, OTHER ==
[2022-06-10 18:17] LABS: APPEARANCE, URINE HAZY (CLEAR); BACTERIA, URINE AUTO NEGATIVE (NEGATIVE); BILIRUBIN, URINE AUTO NEGATIVE (NEGATIVE); BLOOD, URINE BLOOD 1+ (NEGATIVE); COLOR, URINE YELLOW (YELLOW); GLUCOSE, URINE (UA) AUTO NEGATIVE (NEGATIVE); KETONE, URINE AUTO NEGATIVE (NEGATIVE); LEUKOCYTE ESTERASE, URINE AUTO TRACE (NEGATIVE); MUCUS, URINE SMALL (NEGATIVE); NITRITE, URINE AUTO NEGATIVE (NEGATIVE); PROTEIN, URINE AUTO NEGATIVE (NEGATIVE); RBC, URINE AUTO 3 /HPF (0-3); SPECIFIC GRAVITY URINE AUTO 1.017 (1.002-1.035); SQUAMOUS EPITHELIAL CELL UR AU 0 /HPF (0-6); UROBILINOGEN, URINE AUTO 0.2 mg/dL (0.0-2.0); WBC, URINE AUTO 4 /HPF (0-3)
== END ==
LOC: M SMT 17:33
PROVIDERS: ATTEND Physician Assistant
DX: Z01.818 Encounter for other preprocedural examination (principal)

== ENCOUNTER 2022-06-19 08:09 | Day surgery (SDC) | payer MEDICARE, OTHER ==
[~2022-06-19] VITALS: Ht 170.2 cm; Wt 130.1 kg
[~2022-06-19 08:09] MED LIST changes: +CALC0.009; +FAMO20TA PO; +KETO2SHA8; +LEVO200T4 PO; +MAGN400T2 PO
[2022-06-19] MEDS ORDERED: INSULIN LISPRO (NovoLOG) PER UNIT SC PRN (09:00)
[2022-06-19] MEDS ORDERED: LR 1,000 ML IV SCH (09:00)
[2022-06-19] MEDS ORDERED: fentaNYL 100 MCG/2 ML INJECTION As Ordered ONE (09:43)
[2022-06-19] MEDS ORDERED: MIDAZOLAM INJ 2MG/2ML VIAL As Ordered ONE (09:43)
[2022-06-19] MEDS ORDERED: ACETAMINOPHEN 1000MG 100ML IV BAG As Ordered ONE (09:46)
[2022-06-19] MEDS ORDERED: ONDANSETRON 4MG 2ML VIAL As Ordered ONE (09:46)
[2022-06-19] MEDS ORDERED: propofoL 200 MG/20 ML VIAL As Ordered ONE (09:48)
[2022-06-19] MEDS ORDERED: ceFAZolin SOD 2 GM in IV 1 EA IV ONE (10:00)
[2022-06-19] MEDS ORDERED: ceFAZolin SOD 1 GM in D5W MINI-BAG PLUS 50 ML IV ONE (10:00)
[2022-06-19] MEDS ORDERED: FLOM0.4C39 PO (10:27)
[2022-06-19] MEDS ORDERED: OXYC1TAB23 PO (10:27)
[2022-06-19 11:00] VITALS: BP 128/64
== END 2022-06-19 11:19 | disposition home or self-care (01) ==
LOC: M SDC 08:09
PROVIDERS: ATTEND Urology
DX: N20.0 Calculus of kidney (principal); I10 Essential (primary) hypertension; E78.5 Hyperlipidemia, unspecified; E03.9 Hypothyroidism, unspecified; L40.9 Psoriasis, unspecified; Z79.84 Long term (current) use of oral hypoglycemic drugs; Z79.899 Other long term (current) drug therapy; D64.9 Anemia, unspecified; Z87.891 Personal history of nicotine dependence; J30.2 Other seasonal allergic rhinitis
CPT/HCPCS: 50590; 74018; J0131; J1100; J2250; J2405; J3010

== ENCOUNTER → 2022-07-04 | Outpatient (CLI) | payer MEDICARE, OTHER ==
[~2022-07-04] MED LIST changes: +FLOM0.4C39 PO; +OXYC1TAB23 PO
== END ==
LOC: M RAD 14:59
PROVIDERS: ATTEND Urology
DX: N20.0 Calculus of kidney (principal)

== ENCOUNTER → 2023-01-06 | Outpatient (REF) | payer MEDICARE, OTHER | LOC: M SFHCDERM 17:37 | PROVIDERS: ATTEND Physician Assistant | DX: C44.319 Basal cell carcinoma of skin of other parts of face (principal) ==

== ENCOUNTER → 2023-01-22 | Outpatient (CLI) | payer MEDICARE, OTHER | LOC: M RAD 14:29 | PROVIDERS: ATTEND Surgery | DX: R22.41 Localized swelling, mass and lump, right lower limb (principal) ==

== ENCOUNTER → 2023-02-13 | Outpatient (CLI) | payer MEDICARE, OTHER ==
[~2023-02-13] MED LIST changes: +ISOVUE-370 76% 100ML VIAL ONE
== END ==
LOC: M PLAIMG 14:22
PROVIDERS: ATTEND Surgery
DX: R22.43 Localized swelling, mass and lump, lower limb, bilateral (principal)
CPT/HCPCS: 73701; Q9967

== ENCOUNTER → 2023-03-02 | Outpatient (CLI) | payer MEDICARE, OTHER ==
[~2023-03-02] MED LIST changes: +CLOB5CR TOP; +HYDR-3490 PO; -ISOVUE-370 76% 100ML VIAL ONE; -OMEG1CAP85; +OMEG1CAP85 PO; +POTA10808 PO
[2023-03-02 14:45] VITALS: TEMP 97.5
[2023-03-02 15:35] VITALS: BP 142/76; O2SAT 93
== END ==
LOC: M IRPRO 14:31
PROVIDERS: ATTEND Surgery
DX: R22.43 Localized swelling, mass and lump, lower limb, bilateral (principal)

== ENCOUNTER → 2023-03-24 | Outpatient (CLI) | payer MEDICARE, OTHER ==
[2023-03-24 11:23] LABS: BASO # 0.1 10^3/uL (0.0-0.2); BASO % 0.5 % (0.0-1.0); EOS # 0.4 10^3/uL (0.0-0.5); EOS % 4.3 % (0.0-3.0); HEMATOCRIT 43.5 % (36.0-47.0); HEMOGLOBIN 13.6 g/dl (12.0-15.5); LYMPH % 31.8 % (24.0-44.0); MEAN CORPUSCULAR HEMOGLOBIN 28.5 pg (27.0-33.0); MEAN CORPUSCULAR HGB CONC 31.3 g/dl (32.0-36.5); MEAN CORPUSCULAR VOLUME 91.2 fl (80.0-96.0); MONO # 0.5 10^3/uL (0.0-0.8); MONO % 5.6 % (2.0-8.0); NEUTROPHILS # 5.3 10^3/uL (1.5-8.5); PLATELET COUNT, AUTOMATED 223 10^3/uL (150-450); RED BLOOD COUNT 4.77 10^6/uL (4.00-5.40); WHITE BLOOD COUNT 9.3 10^3/uL (4.0-10.0)
[2023-03-24 11:44] LABS: BLOOD UREA NITROGEN 24 MG/DL (9-23); CALCIUM LEVEL 9.4 MG/DL (8.3-10.6); CARBON DIOXIDE LEVEL 28 MMOL/L (20-31); CHLORIDE LEVEL 107 MMOL/L (98-107); CREATININE FOR GFR 0.74 MG/DL (0.55-1.30); GLOMERULAR FILTRATION RATE > 60.0 (>39); GLUCOSE, FASTING 169 MG/DL (74-106); POTASSIUM SERUM 4.7 MMOL/L (3.5-5.1); SODIUM LEVEL 141 MMOL/L (136-145)
[2023-03-24 11:47] LABS: APPEARANCE, URINE CLEAR (CLEAR); BACTERIA, URINE AUTO NEGATIVE (NEGATIVE); BILIRUBIN, URINE AUTO NEGATIVE (NEGATIVE); BLOOD, URINE BLOOD 1+ (NEGATIVE); COLOR, URINE YELLOW (YELLOW); GLUCOSE, URINE (UA) AUTO NEGATIVE (NEGATIVE); KETONE, URINE AUTO NEGATIVE (NEGATIVE); LEUKOCYTE ESTERASE, URINE AUTO 1+ (NEGATIVE); NITRITE, URINE AUTO NEGATIVE (NEGATIVE); PROTEIN, URINE AUTO NEGATIVE (NEGATIVE); RBC, URINE AUTO 1 /HPF (0-3); RENAL EPITHELIAL CELLS 2 /HPF; SPECIFIC GRAVITY URINE AUTO 1.021 (1.002-1.035); SQUAMOUS EPITHELIAL CELL UR AU 2 /HPF (0-6); UROBILINOGEN, URINE AUTO 0.2 mg/dL (0.0-2.0); WBC, URINE AUTO 8 /HPF (0-3)
== END ==
LOC: M EKG 10:05
PROVIDERS: ATTEND Registered Nurse
DX: Z01.818 Encounter for other preprocedural examination (principal); N20.0 Calculus of kidney; R00.1 Bradycardia, unspecified; I44.0 Atrioventricular block, first degree; R94.31 Abnormal electrocardiogram [ECG] [EKG]

== ENCOUNTER → 2023-05-24 | Outpatient (CLI) | payer MEDICARE, OTHER ==
[~2023-05-24] MED LIST changes: +CALC0.0017; -CALC0.009; +IRBE150T27 PO; -IRBE150T7 PO
== END ==
LOC: M SLEEP 20:00
PROVIDERS: ATTEND Internal Medicine Critical Care Medicine
DX: G47.33 Obstructive sleep apnea (adult) (pediatric) (principal)

== ENCOUNTER → 2023-07-03 | Outpatient (CLI) | payer MEDICARE, OTHER | LOC: M RAD 15:03 | PROVIDERS: ATTEND Urology | DX: N20.0 Calculus of kidney (principal) ==

== ENCOUNTER 2023-08-01 17:41 | Emergency (ER) | payer MEDICARE, OTHER ==
[~2023-08-01] VITALS: Ht 170.2 cm; Wt 134.7 kg
[~2023-08-01 17:41] MED LIST changes: -CALC0.02 EX; +CALC1OIN3 EX
[2023-08-01] MEDS ORDERED: BISO10TA14 (17:54)
[2023-08-01] MEDS: LIDOCAINE W/EPINEPHRINE 1% 20ML VIAL SC ONE (19:55)
[2023-08-01 20:07] VITALS: BP 92/47; TEMP 99; O2SAT 92
[2023-08-01] MEDS ORDERED: DOXYCYCLINE HYCLATE 100MG TABLET PO ONE (20:45)
[2023-08-01] MEDS ORDERED: AMOX875T2 PO (20:54)
[2023-08-01] MEDS: AUGMENTIN 875 MG TAB PO ONE (21:10)
== END 2023-08-01 21:20 | disposition home or self-care (01) ==
LOC: M ED 17:41
DX: L05.01 Pilonidal cyst with abscess (principal); I10 Essential (primary) hypertension; E03.9 Hypothyroidism, unspecified; Z88.2 Allergy status to sulfonamides; Z88.8 Allergy status to other drugs, medicaments and biological substances; E78.5 Hyperlipidemia, unspecified; K21.9 Gastro-esophageal reflux disease without esophagitis

== ENCOUNTER → 2023-10-12 | Outpatient (REF) | payer MEDICARE, OTHER ==
[~2023-10-12] MED LIST changes: +AMOX875T2 PO; -AZEL0.055; +AZEL1SPR4; +BISO10TA14; +OMEG-28 PO; -OMEG1CAP85 PO
== END ==
LOC: M LAB REF 16:27
PROVIDERS: ATTEND Surgery
DX: L72.0 Epidermal cyst (principal)

== ENCOUNTER → 2023-10-20 | Outpatient (REF) | payer MEDICARE, OTHER | LOC: M LAB REF 07:39 | PROVIDERS: ATTEND Surgery | DX: L72.3 Sebaceous cyst (principal) ==

== ENCOUNTER → 2023-11-24 | Outpatient (CLI) | payer MEDICARE, OTHER | LOC: M PLAIMG 12:35 | PROVIDERS: ATTEND Internal Medicine Critical Care Medicine | DX: R91.8 Other nonspecific abnormal finding of lung field (principal) ==

== ENCOUNTER → 2024-06-29 | Outpatient (CLI) | payer MEDICARE, OTHER ==
[~2024-06-29] MED LIST changes: +POTA10807 PO; -POTA10808 PO
== END ==
LOC: M PLAIMG 13:38
PROVIDERS: ATTEND Urology
DX: N20.0 Calculus of kidney (principal)

== ENCOUNTER → 2024-12-05 | Outpatient (CLI) | payer MEDICARE, OTHER ==
[~2024-12-05] MED LIST changes: -DESO0.0557 EX; +DESO0.0572 EX; -FLOM0.4C39 PO; +KETO120S5; -KETO2SHA8; +TAMS-18 PO
== END ==
LOC: M PLAIMG 14:20
PROVIDERS: ATTEND Internal Medicine Critical Care Medicine
DX: R91.1 Solitary pulmonary nodule (principal)